=== PATIENT | female | born 1995 | race Caucasian/White ===

== ENCOUNTER 2019-09-20 11:02 | Emergency (ER) | payer OTHER ==
[2019-09-20 11:56] LABS: Absolute Lymphocytes (CBC) 1.6 K/uL (0.7-4.9); Basophils % 0.6 % (0-1.3); Hematocrit 40.9 % (36.0-45.0); Lymphocytes % 25.5 % (15.3-44.8); RBC Red Blood Cell Count 4.88 M/uL (3.86-4.86)
[2019-09-20] MEDS ORDERED: NA CHLORIDE 0.9% 1,000 ML ONE (11:59)
[2019-09-20 12:27] LABS: Potassium 3.8 mmol/L (3.5-5.1)
[2019-09-20 12:45] LABS: Urine Blood 2+ (NEG); Urine Glucose NEGATIVE (NEG); Urine Protein 1+ (NEG)
--- NOTE | 2019-09-20 13:04 | EDPHYS ---
Physician Documentation [facility] Name: Radha Sue Age: 24 yrs Sex: Female : 1995 Arrival Date: 09/20/2019 Time: 11:04 Bed 8 Private MD: ED Physician Duy Hubbard HPI: 09/19 12:10 This 24 yrs old Female presents to ER via Ambulatory with complaints of karen Vaginal Bleeding, + Preg <12wks. 12:10 The patient presents to the emergency department with vaginal bleeding, that is light, karen that is moderate. The estimated gestational age is 6 weeks. course: care: none. Associated signs and symptoms: The patient has no apparent associated signs or symptoms. The patient has not experienced similar symptoms in the past. 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 - Social history:: Smoking status: Patient denies any tobacco usage or history of. - Family history:: not pertinent. ROS: 12:10 Constitutional: Negative for fever, chills, and weight loss, Eyes: Negative for injury, karen pain, redness, and discharge, ENT: Negative for injury, pain, and discharge, Neck: Negative for injury, pain, and swelling, Cardiovascular: Negative for chest pain, palpitations, and edema, Respiratory: Negative for shortness of breath, cough, wheezing, and pleuritic chest pain, Abdomen/GI: Negative for abdominal pain, nausea, vomiting, diarrhea, and constipation, Back: Negative for injury and pain, MS/Extremity: Negative for injury and deformity, Skin: Negative for injury, rash, and discoloration, Neuro: Negative for headache, weakness, numbness, tingling, and seizure, Psych: Negative for depression, anxiety, suicide ideation, homicidal ideation, and hallucinations, Allergy/Immunology: Negative for hives, rash, and allergies, Endocrine: Negative for neck swelling, polydipsia, polyuria, polyphagia, and marked weight changes, Hematologic/Lymphatic: Negative for swollen nodes, abnormal bleeding, and unusual bruising. 12:10 : Positive for vaginal bleeding. Exam: 12:10 Constitutional: This is a well developed, well nourished patient who is awake, alert, karen and in no acute distress. Head/Face: Normocephalic, atraumatic. Eyes: Pupils equal round and reactive to light, extra-ocular motions intact. Lids and lashes normal. Conjunctiva and sclera are non-icteric and not injected. Cornea within normal limits. Periorbital areas with no swelling, redness, or edema. ENT: Nares patent. No nasal discharge, no septal abnormalities noted. Tympanic membranes are normal and external auditory canals are clear. Oropharynx with no redness, swelling, or masses, exudates, or evidence of obstruction, uvula midline. Mucous membranes moist. Neck: Trachea midline, no thyromegaly or masses palpated, and no cervical lymphadenopathy. Supple, full range of motion without nuchal rigidity, or vertebral point tenderness. No Meningismus. Chest/axilla: Normal chest wall appearance and motion. Nontender with no deformity. No lesions are appreciated. Cardiovascular: Regular rate and rhythm with a normal S1 and S2. No gallops, murmurs, or rubs. Normal PMI, no JVD. No pulse deficits. Respiratory: Lungs have equal breath sounds bilaterally, clear to auscultation and percussion. No rales, rhonchi or wheezes noted. No increased work of breathing, no retractions or nasal flaring. Abdomen/GI: Soft, non-tender, with normal bowel sounds. No distension or tympany. No guarding or rebound. No evidence of tenderness throughout. Back: No spinal tenderness. No costovertebral tenderness. Full range of motion. Skin: Warm, dry with normal turgor. Normal color with no rashes, no lesions, and no evidence of cellulitis. MS/ Extremity: Pulses equal, no cyanosis. Neurovascular intact. Full, normal range of motion. Neuro: Awake and alert, GCS 15, oriented to person, place, time, and situation. Cranial nerves II-XII grossly intact. Motor strength 5/5 in all extremities. Sensory grossly intact. Cerebellar exam normal. Normal gait. Psych: Awake, alert, with orientation to person, place and time. Behavior, mood, and affect are within normal limits. Vital Signs: 11:14 BP 113 / 91; Pulse 96; Resp 17; Temp 98.6; Pulse Ox 99% ; Weight 80.74 kg; Height 5 ft. jl7 9 in. (175.26 cm); Pain 7/10; 12:58 BP 139 / 94; Pulse 90; Resp 16; Pulse Ox 99% ; jl7 11:14 Body Mass Index 26.29 (80.74 kg, 175.26 cm) jl7 MDM: 11:11 Patient medically screened. [facility] 12:19 Differential diagnosis: threatened Ab, inevitable Ab, complete Ab. Data reviewed: vital karen signs, nurses notes, lab test result(s), radiologic studies, ultrasound. Data interpreted: teletypesetter monitor: rate is 96 beats/min, Pulse oximetry: on is 99 %. Counseling: I had a detailed discussion with the patient and/or guardian regarding: the historical points, exam findings, and any diagnostic results supporting the discharge/admit diagnosis, lab results, radiology results, the need for outpatient follow up, for definitive care, an OB/Gyne specialist. 13:03 ED course: usg 5 bweek 2 days, no pole, b neg, rhogam pnv and pelvic rest. follow karen up cat hooker, return if worsen. 09/19 11:33 Order name: Quantitative Hcg; Complete Time: 13:01 [facility] 09/19 11:33 Order name: Abo/rh Typing [facility] 09/19 11:33 Order name: Basic Metabolic Panel; Complete Time: 13: [facility] 09/19 11:33 Order name: CBC with Diff; Complete Time: 13: [facility] 09/19 11:33 Order name: Urine Culture [facility] 09/19 12:10 Order name: Urine Dipstick--Ancillary (enter results); Complete Time: 13: 09/19 12:10 Order name: Urine --Ancillary (enter results); Complete Time: 13: 09/19 12:38 Order name: ABO/RH no charge; Complete Time: 13: [facility] 09/19 13:08 Order name: Rh Typing [facility] 09/19 11:33 Order name: IV Saline Lock; Complete Time: 11:41 [facility] 09/19 11:33 Order name: Labs collected and sent; Complete Time: 11:41 [facility] 09/19 11:33 Order name: NPO; Complete Time: :41 [facility] 09/19 11:33 Order name: Urine Dipstick-Ancillary (obtain specimen); Complete Time: 11:40 [facility] 09/19 11:33 Order name: US Transvaginal Ob [facility] 09/19 13:08 Order name: Rhogam EDMS Administered Medications: 11:45 Drug: NS 0.9% 1000 ml Route: IV; Rate: 1 bolus; Site: right antecubital; bp 12:45 Follow up: Response: No adverse reaction; IV Status: Completed infusion; IV Intake: jl7 800ml 13:45 Drug: RhoGAM (Human) 300 mcg Route: IM; Site: right deltoid; jl7 14:02 Follow up: Response: No adverse reaction jl7 Point of Care Testing: Urine : 11:41 hCG Reading: Positive; Control Reading: Positive; jl7 Disposition: 09/20/19 13:03 Discharged to Home. Impression: Threatened . - Condition is Stable. - Discharge Instructions: Threatened Miscarriage, Vaginal Bleeding During , First Trimester, First Trimester of , [id number], First Trimester of , Threatened Miscarriage, Sapy-[id number], Pelvic Rest. - Prescriptions for Vitamin 27- 0.8 mg Oral Tablet - take 1 tablet by ORAL route once daily; 30 tablet. - Medication Reconciliation Form, Thank You Letter, Antibiotic Education, Prescription Opioid Use, Work release form form. - Follow up: Private Physician; When: 2 - 3 days; Reason: Recheck today's complaints, Continuance of care, Re-evaluation by your physician. Follow up: Will Rodriguez MD; When: 2 - 3 days; Reason: Recheck today's complaints, Re-evaluation by your physician. - Problem is new. - Symptoms have improved. Signatures: Dispatcher [employer] EDDuy Walker MD MD cha Leal, Jahala, RN RN jl7 Daniel Nunes RN RN bp Corrections: (The following items were deleted from the chart) 13:08 13:03 RHOGAM+[id number].BRZ ordered. EDMS EDMS 13:08 13:03 Rh Typing ordered. EDMS EDMS 13:08 13:03 Antibody Screen ordered. EDMS EDAL 13:08 13:03 Fetalscreen ordered. [facility] 13:08 13:03 Cord Rh type ordered. [facility] 14:04 13:03 09/20/2019 13:03 Discharged to Home. Impression: Threatened . Condition jl7 is Stable. Forms are Medication Reconciliation Form, Thank You Letter, Antibiotic Education, Prescription Opioid Use. Follow up: Private Physician; When: 2 - 3 days; Reason: Recheck today's complaints, Continuance of care, Re-evaluation by your physician. Follow up: Will Rodriguez; When: 2 - 3 days; Reason: Recheck today's complaints, Re-evaluation by your physician. Problem is new. Symptoms have improved. karen
--- NOTE | 2019-09-20 13:04 | ER ---
Nurse's Notes [facility] Name: Radha Sue Age: 24 yrs Sex: Female : 1995 Arrival Date: 09/20/2019 Time: 11:04 Bed 8 Private MD: Diagnosis: Threatened Presentation: 09/19 11:14 Chief complaint: Patient states: Bright red bleeding this morning, RLQ pain, denies jl7 N/V/D, denies urinary symptoms. Coronavirus screen: Proceed with normal triage. Patient denies a cough. Patient denies shortness of breath or difficulty breathing. Patient denies measured and/or subjective temperature greater than 100.4F prior to today's visit. Patient denies travel on a cruise ship or to a country the [facility] currently lists as an affected area. Patient denies contact with known and/or suspected case of COVID-19. Ebola Screen: No symptoms or risks identified at this time. Initial Sepsis Screen: Does the patient meet any 2 criteria? No. Patient's initial sepsis screen is negative. Does the patient have a suspected source of infection? No. Patient's initial sepsis screen is negative. Risk Assessment: Do you want to hurt yourself or someone else? Patient reports no desire to harm self or others. Onset of symptoms was September 20, 2019. Care prior to arrival: None. 11:14 Method Of Arrival: Ambulatory jl7 11:14 Acuity: TAVIA 3 jl7 Triage Assessment: 11:17 General: Appears in no apparent distress. uncomfortable, Behavior is calm, cooperative, jl7 appropriate for age. Pain: Complains of pain in right lower quadrant Pain does not radiate. Pain currently is 0 out of 10 on a pain scale. at worst was 7 out of 10 on a pain scale. Quality of pain is described as sharp, Pain began suddenly, Is intermittent. Neuro: Level of Consciousness is awake, alert, obeys commands, Oriented to person, place, time, situation. Cardiovascular: Patient's skin is warm and dry. Respiratory: Airway is patent Respiratory effort is even, unlabored, Respiratory pattern is regular, symmetrical. GI: Patient currently denies diarrhea, nausea, vomiting. : Reports vaginal bleeding that is bright red, Denies burning with urination. Derm: Skin is pink, warm \T\ dry. 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 - Social history:: Smoking status: Patient denies any tobacco usage or history of. - Family history:: not pertinent. Screenin:19 Abuse screen: Denies threats or abuse. Denies injuries from another. Nutritional jl7 screening: No deficits noted. Tuberculosis screening: No symptoms or risk factors identified. Fall Risk IV access (20 points). Total Hooks Fall Scale indicates No Risk (0-24 pts). Assessment: 11:19 Obstetrical Assessment: Patient reports Abdominal pain. General: See triage assessment. jl7 12:00 Reassessment: Patient appears in no apparent distress at this time. No changes from 7 previously documented assessment. Patient and/or family updated on plan of care and expected duration. Pain level reassessed. Patient is alert, oriented x 3, equal unlabored respirations, skin warm/dry/pink. 12:58 Reassessment: Patient appears in no apparent distress at this time. No changes from 7 previously documented assessment. Patient and/or family updated on plan of care and expected duration. Pain level reassessed. Patient is alert, oriented x 3, equal unlabored respirations, skin warm/dry/pink. 13:09 Reassessment: Pt will be discharged after medication administration and shot time. jl7 Vital Signs: 11:14 BP 113 / 91; Pulse 96; Resp 17; Temp 98.6; Pulse Ox 99% ; Weight 80.74 kg; Height 5 ft. jl7 9 in. (175.26 cm); Pain 7/10; 12:58 BP 139 / 94; Pulse 90; Resp 16; Pulse Ox 99% ; jl7 11:14 Body Mass Index 26.29 (80.74 kg, 175.26 cm) 7 ED Course: 11:04 Patient arrived in ED. ag5 11:08 Daniel Nunes, RN is Primary Nurse. bp 11:11 Duy Hubbard MD is Attending Physician. karen 11:14 Primary Nurse role handed off by Daniel Nunes RN jl7 11:14 Erika Simons, RN is Primary Nurse. jl7 11:16 Triage completed. jl7 11:17 Arm band placed on right wrist. jl7 11:19 Patient has correct armband on for positive identification. Placed in gown. Bed in low jl7 position. Call light in reach. Side rails up X 1. Pulse ox on. NIBP on. 11:42 Warm blanket given. 5 11:42 Urine collected: clean catch specimen, cloudy. 5 11:45 Inserted saline lock: 20 gauge in right antecubital area, using aseptic technique. bp Blood collected. 12:17 Repeat lab(s) drawn. by mt, sent to lab. 5 12:56 US Transvaginal Ob In Process Unspecified. [facility] 13:01 Ultrasound completed. Patient tolerated well. Notified ED Physician timur. sg3 13:02 Will Rodriguez MD is Referral Physician. [facility] 14:03 No provider procedures requiring assistance completed. IV discontinued, intact, jl7 bleeding controlled, No redness/swelling at site. Pressure dressing applied. Administered Medications: 11:45 Drug: NS 0.9% 1000 ml Route: IV; Rate: 1 bolus; Site: right antecubital; bp 12:45 Follow up: Response: No adverse reaction; IV Status: Completed infusion; IV Intake: jl7 800ml 13:45 Drug: RhoGAM (Human) 300 mcg Route: IM; Site: right deltoid; jl7 14:02 Follow up: Response: No adverse reaction jl7 Point of Care Testing: Urine : 11:41 hCG Reading: Positive; Control Reading: Positive; jl7 Intake: 12:45 IV: 800ml; Total: 800ml. jl7 Outcome: 13:03 Discharge ordered by . karen 14:03 Discharged to home ambulatory. jl7 14:03 Condition: stable 14:03 Discharge instructions given to patient, Instructed on discharge instructions, follow up and referral plans. medication usage, Demonstrated understanding of instructions, follow-up care, medications, Prescriptions given X 1. 14:04 Patient left the ED. jl7 Signatures: Dispatcher [employer] EDMS Duy Hubbard MD MD karen Giancarlo, Michelle 5 Erika Simons, RN RN jl7 Daniel Nunes, REJI RN bp Aleyda Sanchez 3 Blayne Guerra 5
--- NOTE | 2019-09-20 13:06 | RAD REPORT ---
EXAM DESCRIPTION: US - Transvaginal OB - 09/20/2019 12:58 pm CLINICAL HISTORY: ABD CRAMPING, COMPARISON: No comparisons FINDINGS: Normal-sized uterus is present. Normal shaped gestational sac is present. Small yolk sac i s identified. No pole is evident at this time. No hematoma or mass within the endometrial cavit y. Gestational sac measurements correspond to a 5 week 2 day age. Both ovaries are identified. Small cysts are present. No dominant ovarian or adnexal finding. No bloo d or fluid in the cul de sac. IMPRESSION: Small 5 week 2 day sized gestational sac with yolk sac. No pole is currently evide nt. No adnexal abnormalities.
[2019-09-20 14:16] VITALS: TEMP 98.6; O2SAT 99
[2019-09-20 14:17] VITALS: BP 139/94
== END 2019-09-20 14:04 | disposition home or self-care (01) ==
LOC: ER 11:02
DX: O20.0 Threatened abortion (principal); O16.1 Unspecified maternal hypertension, first trimester; Z3A.01 Less than 8 weeks gestation of pregnancy; Z88.5 Allergy status to narcotic agent
CPT/HCPCS: 87088; 85025; 87086; 80048; 36415; 86900; 81025; 86901 ×2; 84702; 81003; 76817; 96360; 96372; 99284; J2790; J7030

== ENCOUNTER 2020-01-29 07:38 | Emergency (ER) | payer OTHER ==
--- OUTSIDE RECORDS SUMMARY | 2020-01-29 07:43 | XMS REPORT | Continuity of Care Document ---
:1995 Author Organization [facility] t Address [address] [place] [address] Care Team Providers Name Role Phone Radiology Attending Clinician Unavailable Pob, Lab Main Attending Clinician Unavailable Problems This patient has no known problems. Allergies, Adverse Reactions, Alerts This patient has no known allergies or adverse reactions. Medications This patient has no known medications. Procedures This patient has no known procedures. Encounters Start End Encounter Admission Attending Care Care Encounter Source Date/Time Date/Time Type Type Clinicians Facility Department ID 2019-09-04 2019-09-04 [facility] Radiology [facility] [id number] 08:58:00 23:59:00 Encounter [place] [id number] [place] [id number] [place] [id number] 2019-09-04 2019-09-04 Sewing Department Supervisor Sunil Deluca [facility] [id number] 09:02:04 09:17:04 Visit Lab Main [place] [id number] [place] [id number] [phone] [address] Results This patient has no known results.
[2020-01-29 08:25] LABS: Absolute Lymphocytes (CBC) 1.4 K/uL (0.7-4.9); Basophils % 0.3 % (0-1.3); Hematocrit 38.8 % (36.0-45.0); Lymphocytes % 19.4 % (15.3-44.8); MPV 7.8 fL (7.6-11.3)
[2020-01-29] MEDS ORDERED: FAMOTIDINE 20 MG/2 ML VIAL IV ONE (08:38)
[2020-01-29] MEDS ORDERED: NA CHLORIDE 0.9% 1,000 ML ONE (08:38)
[2020-01-29 08:58] LABS: BUN Blood Urea Nitrogen 5 mg/dL (7-18); Bicarbonate 27 mmol/L (21-32); Glucose Level 67 mg/dL (74-106); HCG, Quantitative 12096 mIU/mL (1-3); Potassium 3.9 mmol/L (3.5-5.1); Sodium Level 138 mmol/L (136-145)
[2020-01-29 09:14] LABS: Urine Blood NEGATIVE (NEG); Urine Glucose NEGATIVE (NEG); Urine Protein NEGATIVE (NEG); Urine pH 7.5 (5.0-7.0)
--- NOTE | 2020-01-29 09:55 | RAD REPORT ---
EXAM DESCRIPTION: US - Transvaginal OB - 01/29/2020 9:38 am CLINICAL HISTORY: Abd pain;Nausea/Vomiting COMPARISON: Transvaginal OB dated 09/20/2019 FINDINGS: A single gestational sac is seen within the uterus. The shape of the sac is within normal limits for gestational age. Within the sac is a single pole with crown-rump length of 11 mm, co rrelating to estimated gestational age of 7 weeks 1 day. Estimated date of delivery is 09/15/2020. Heart rate is 140 BPM. The placenta is not yet developed due to early gestational age. The maternal adnexa and ovaries are within normal limits. Normal Doppler blood flow was demonstrated to both ovaries. IMPRESSION: Single live early intrauterine gestation with estimated gestational age of 7 weeks 1 day , SYEDA 09/15/2020. No unusual or unexpected finding.
--- NOTE | 2020-01-29 10:21 | EDPHYS ---
Physician Documentation [facility] Name: Radha Sue Age: 24 yrs Sex: Female : 1995 Arrival Date: 01/29/2020 Time: 07:42 Bed 20 Private MD: ED Physician Lance Guido HPI: 01/28 16:29 This 24 yrs old Female presents to ER via Ambulatory with complaints of kdr Abdominal Pain, Nausea/Vomiting, +7 WKS PREG.. 17:59 The patient presents to the emergency department with nausea, that is mild, vomiting, kdr that is intermittent. Onset: The symptoms/episode began/occurred acutely, gradually, 3 day(s) ago. Possible causes: . The symptoms are aggravated by food , The symptoms are alleviated by. Associated signs and symptoms: The patient has no apparent associated signs or symptoms. Severity of symptoms: At their worst the symptoms were mild moderate just prior to arrival, in the emergency department the symptoms are unchanged. The patient has experienced similar episodes in the past, several times, With prior pregnancies . The patient has not recently seen a physician. Historical: - Allergies: 08:01 Demerol; ph - PMHx: 08:01 Hypertension; mitral valve prolapse and regurgitation; ph - PSHx: 08:01 Appendectomy; ph - Immunization history:: Adult Immunizations unknown. - Social history:: Smoking status: Patient denies any tobacco usage or history of. ROS: 17:59 Constitutional: Negative for fever, chills, and weight loss, Eyes: Negative for injury, kdr pain, redness, and discharge, ENT: Negative for injury, pain, and discharge, Neck: Negative for injury, pain, and swelling, Cardiovascular: Negative for chest pain, palpitations, and edema, Respiratory: Negative for shortness of breath, cough, wheezing, and pleuritic chest pain, Back: Negative for injury and pain, : Negative for injury, bleeding, discharge, and swelling, MS/Extremity: Negative for injury and deformity, Skin: Negative for injury, rash, and discoloration, Neuro: Negative for headache, weakness, numbness, tingling, and seizure activity. Psych: Negative for depression, anxiety, suicide ideation, homicidal ideation, and hallucinations, Allergy/Immunology: Negative for hives, rash, and allergies, Endocrine: Negative for neck swelling, polydipsia, polyuria, polyphagia, and marked weight changes, Hematologic/Lymphatic: Negative for swollen nodes, abnormal bleeding, and unusual bruising. 17:59 Abdomen/GI: Positive for nausea and vomiting, Negative for abdominal pain, diarrhea, constipation, abdominal cramps, abdominal distension, anorexia, dysphagia, hematemesis, black/tarry stool, rectal pain, rectal bleeding, bowel incontinence. Exam: 17:59 Constitutional: This is a well developed, well nourished patient who is awake, alert, kdr and in no acute distress. Head/Face: Normocephalic, atraumatic. Eyes: Pupils equal round and reactive to light, extra-ocular motions intact. Lids and lashes normal. Conjunctiva and sclera are non-icteric and not injected. Cornea within normal limits. Periorbital areas with no swelling, redness, or edema. Neck: Trachea midline, no thyromegaly or masses palpated, and no cervical lymphadenopathy. Supple, full range of motion without nuchal rigidity, or vertebral point tenderness. No Meningismus. Chest/axilla: Normal chest wall appearance and motion. Nontender with no deformity. No lesions are appreciated. Cardiovascular: Regular rate and rhythm with a normal S1 and S2. No gallops, murmurs, or rubs. Normal PMI, no JVD. No pulse deficits. Respiratory: Lungs have equal breath sounds bilaterally, clear to auscultation and percussion. No rales, rhonchi or wheezes noted. No increased work of breathing, no retractions or nasal flaring. Abdomen/GI: Soft, non-tender, with normal bowel sounds. No distension or tympany. No guarding or rebound. No evidence of tenderness throughout. Back: No spinal tenderness. No costovertebral tenderness. Full range of motion. Skin: Warm, dry with normal turgor. Normal color with no rashes, no lesions, and no evidence of cellulitis. MS/ Extremity: Pulses equal, no cyanosis. Neurovascular intact. Full, normal range of motion. Neuro: Awake and alert, GCS 15, oriented to person, place, time, and situation. Cranial nerves II-XII grossly intact. Motor strength 5/5 in all extremities. Sensory grossly intact. Cerebellar exam normal. Normal gait. Psych: Awake, alert, with orientation to person, place and time. Behavior, mood, and affect are within normal limits. Vital Signs: 07:52 BP 129 / 101; Pulse 108; Resp 18; Temp 98.6; Pulse Ox 100% ; Weight 79.38 kg; Height 5 sv ft. 9 in. (175.26 cm); Pain 2/10; 08:49 BP 117 / 78; Pulse 66; Resp 16; Temp 98.4(O); Pulse Ox 100% on R/A; mh5 10:05 BP 125 / 80; Pulse 65; Resp 16; Temp 98.2(O); Pulse Ox 100% on R/A; mh5 10:31 Temp 97.9(O); ph 07:52 Body Mass Index 25.84 (79.38 kg, 175.26 cm) sv MDM: 10:20 Patient medically screened. kdr 17:59 Data reviewed: vital signs, nurses notes, lab test result(s), radiologic studies. kdr Counseling: I had a detailed discussion with the patient and/or guardian regarding: the historical points, exam findings, and any diagnostic results supporting the discharge/admit diagnosis, lab results, radiology results, the need for outpatient follow up. 01/28 07:46 Order name: Quantitative Hcg; Complete Time: 09:58 kdr 01/28 07:46 Order name: Abo/rh Typing kdr 01/28 07:46 Order name: Basic Metabolic Panel; Complete Time: 09:58 kdr 01/28 07:46 Order name: CBC with Diff; Complete Time: 09:58 kdr 01/28 08:29 Order name: Urine Dipstick--Ancillary (enter results); Complete Time: 09:58 eb 01/28 08:29 Order name: Urine --Ancillary (enter results); Complete Time: 09:58 eb 01/28 07:46 Order name: IV Saline Lock; Complete Time: 08:23 kdr 01/28 07:46 Order name: Labs collected and sent; Complete Time: 08:23 kdr 01/28 07:46 Order name: NPO; Complete Time: 08: kdr 01/28 07:46 Order name: Urine Dipstick-Ancillary (obtain specimen); Complete Time: 08:23 kdr 01/28 08:07 Order name: US Transvaginal Ob; Complete Time: 09:58 kdr 01/28 09:49 Order name: PO challenge; Complete Time: 10:05 kdr Administered Medications: 08:29 Drug: NS 0.9% 1000 ml Route: IV; Rate: 1 bolus; Site: left antecubital; ph 10:30 Follow up: Response: No adverse reaction; IV Status: Completed infusion; IV Intake: ph 500ml 08:29 Drug: Pepcid 20 mg Route: IVP; Site: left antecubital; ph 10:05 Follow up: Response: No adverse reaction ph Disposition: 01/29/20 10:20 Discharged to Home. Impression: Mild hyperemesis gravidarum. - Condition is Fair. - Discharge Instructions: Hyperemesis Gravidarum, Eating Plan for Hyperemesis Gravidarum. - Prescriptions for Zofran 4 mg Oral Tablet - take 1 tablet by ORAL route every 4-6 hours As needed; 12 tablet. - Medication Reconciliation Form, Thank You Letter, Work release form form. - Follow up: Private Physician; When: 2 - 3 days; Reason: If symptoms return, Further diagnostic work-up, Recheck today's complaints, Continuance of care, Re-evaluation by your physician. - Problem is new. - Symptoms have improved. Signatures: Dispatcher [employer] EDMS Lance Guido MD MD kdr Raina Kirby RN RN ph Corrections: (The following items were deleted from the chart) 10:31 10:20 01/29/2020 10:20 Discharged to Home. Impression: Mild hyperemesis gravidarum. ph Condition is Fair. Forms are Medication Reconciliation Form, Thank You Letter, Antibiotic Education, Prescription Opioid Use. Follow up: Private Physician; When: 2 - 3 days; Reason: If symptoms return, Further diagnostic work-up, Recheck today's complaints, Continuance of care, Re-evaluation by your physician. Problem is new. Symptoms have improved. kdr
--- NOTE | 2020-01-29 10:21 | ER ---
Nurse's Notes [facility] Name: Radha Sue Age: 24 yrs Sex: Female : 1995 Arrival Date: 01/29/2020 Time: 07:42 Bed 20 Private MD: Diagnosis: Mild hyperemesis gravidarum Presentation: 01/28 07:52 Chief complaint: Patient states: RLQ/suprapubic pain, generalized weakness, n/v, feels sv like she's not emptying her bladder completely x 2 days. Coronavirus screen: Client denies travel out of the [place] in the last 14 days. fatigue, nausea, vomiting. Client presents with at least one sign or symptom that may indicate coronavirus-19. Standard/surgical mask placed on the client. Provider contacted for isolation considerations. Ebola Screen: No symptoms or risks identified at this time. Initial Sepsis Screen: Does the patient meet any 2 criteria? HR > 90 bpm. No. Patient's initial sepsis screen is negative. Does the patient have a suspected source of infection? No. Patient's initial sepsis screen is negative. Risk Assessment: Do you want to hurt yourself or someone else? Patient reports no desire to harm self or others. Onset of symptoms was January 27, 2020. 07:52 Method Of Arrival: Ambulatory sv 07:52 Acuity: TAVIA 2 sv Historical: - Allergies: 08:01 Demerol; ph - PMHx: 08:01 Hypertension; mitral valve prolapse and regurgitation; ph - PSHx: 08:01 Appendectomy; ph - Immunization history:: Adult Immunizations unknown. - Social history:: Smoking status: Patient denies any tobacco usage or history of. Screenin:53 Abuse screen: Denies threats or abuse. Denies injuries from another. Nutritional ph screening: No deficits noted. Tuberculosis screening: No symptoms or risk factors identified. Fall Risk None identified. Assessment: 07:55 Reassessment: Informed Dr Guido of reason for visit, stated does not need droplet sv precautions. 08:00 General: Appears in no apparent distress. uncomfortable, well groomed, Behavior is ph calm, cooperative, appropriate for age, Denies fever, feeling ill. Pain: Complains of pain in posterior aspect of left lateral abdomen and anterior aspect of left lateral abdomen. Neuro: Level of Consciousness is awake, alert, obeys commands, Oriented to person, place, time, situation. Cardiovascular: Capillary refill < 3 seconds in bilateral fingers Patient's skin is warm and dry. Respiratory: Airway is patent Respiratory effort is even, unlabored, Respiratory pattern is regular, symmetrical. GI: Abdomen is round non-distended, Abd is soft and non tender X 4 quads. Reports nausea, vomiting. : Reports urinary frequency, Denies burning with urination, vaginal bleeding. Derm: Skin is intact, is healthy with good turgor, Skin is pink, warm \T\ dry. 09:13 Reassessment: Patient appears in no apparent distress at this time. Patient and/or ph family updated on plan of care and expected duration. Pain level reassessed. Patient is alert, oriented x 3, equal unlabored respirations, skin warm/dry/pink. Patient states symptoms have improved. Vital Signs: 07:52 BP 129 / 101; Pulse 108; Resp 18; Temp 98.6; Pulse Ox 100% ; Weight 79.38 kg; Height 5 sv ft. 9 in. (175.26 cm); Pain 2/10; 08:49 BP 117 / 78; Pulse 66; Resp 16; Temp 98.4(O); Pulse Ox 100% on R/A; mh5 10:05 BP 125 / 80; Pulse 65; Resp 16; Temp 98.2(O); Pulse Ox 100% on R/A; mh5 10:31 Temp 97.9(O); ph 07:52 Body Mass Index 25.84 (79.38 kg, 175.26 cm) sv ED Course: 07:42 Patient arrived in ED. bp1 07:46 Lance Guido MD is Attending Physician. kdr 07:48 Raina Kirby, REJI is Primary Nurse. ph 07:52 Arm band placed on. sv 07:53 Patient has correct armband on for positive identification. Bed in low position. Call ph light in reach. Side rails up X 1. Pulse ox on. NIBP on. Door closed. Noise minimized. Warm blanket given. 07:55 Triage completed. sv 08:10 Radiology exam delayed due to lab results not completed at this time. (HCG) aa4 test not completed at this time. 08:10 Missed attempt(s): 22 gauge in right antecubital area. Bleeding controlled, band aid ph applied, catheter tip intact. 08:15 Inserted saline lock: 22 gauge in left antecubital area, using aseptic technique. Blood ph collected. 09:38 US Transvaginal Ob In Process Unspecified. EDMS 09:43 Patient moved back from ultrasound. sv 10:31 No provider procedures requiring assistance completed. IV discontinued, intact, ph bleeding controlled, No redness/swelling at site. Pressure dressing applied. Administered Medications: 08:29 Drug: NS 0.9% 1000 ml Route: IV; Rate: 1 bolus; Site: left antecubital; ph 10:30 Follow up: Response: No adverse reaction; IV Status: Completed infusion; IV Intake: ph 500ml 08:29 Drug: Pepcid 20 mg Route: IVP; Site: left antecubital; ph 10:05 Follow up: Response: No adverse reaction ph Intake: 10:30 IV: 500ml; Total: 500ml. ph Outcome: 10:20 Discharge ordered by MD. kdr 10:31 Discharged to home ambulatory. ph 10:31 Condition: good 10:31 Discharge instructions given to patient, Instructed on discharge instructions, follow up and referral plans. medication usage, Demonstrated understanding of instructions, follow-up care, medications, Prescriptions given X 1. 10:31 Patient left the ED. ph Signatures: Dispatcher [employer] EDMS Kelli Velez RN RN sv Rittger, Kevin, MD MD kdr Frazier, Amanda aa4 Hall, Patricia, RN RN ph Martinez, Maria [facility] Hazel Fuentes [facility]
[2020-01-29 10:38] VITALS: O2SAT 100
[2020-01-29 10:40] VITALS: BP 125/80
[2020-01-29 10:41] VITALS: TEMP 97.9
== END 2020-01-29 10:31 | disposition home or self-care (01) ==
LOC: ER 07:38
DX: O21.0 Mild hyperemesis gravidarum (principal); Z3A.01 Less than 8 weeks gestation of pregnancy; Z88.5 Allergy status to narcotic agent
CPT/HCPCS: 96361; 85025; 80048; 36415; 86900; 81025; 86901; 84702; 81003; 76817; 96374; 99284; J7030

== ENCOUNTER 2020-03-19 20:51 | Emergency (ER) | payer OTHER ==
--- OUTSIDE RECORDS SUMMARY | 2020-03-19 20:54 | XMS REPORT | Summary of Care ---
:[address] [facility] Address [address] [place] [id number] Care Team Providers Name Role Phone Chapo Barney MD Primary Care Provider Reason for Visit Reason Comments Medical Records MR received from cardiologis t Dr. Villegas Encounter Details Date Type Department Care Team Description 02/15/2020 Case Management [facility] Women's Zandra Majano M edical Records ([facility] PA-C received from [address] [place] [address] Burgos, [address] [place]) [facility] [address] [id number] [place], [place] [phone] Allergies Active Allergy Reactions Severity Noted Date Comments Meperidine Hcl Rash 12/10/2015 documented as of this encounter (statuses as of 02/15/2020) Medications Medication Sig Dispensed Refills Start Date End Date Status labetalol (NORMODYNE) Take 200 mg by 0 Active 100 mg tablet mouth every 12 (twelve) hours. ondansetron 4 mg TAKE 1 TABLET BY 0 02/09/2020 Active tablet MOUTH EVERY 4 TO 6 HOURS NEEDED FOR NAUSEA vit Take by mouth. 0 A ctive calc,iron,folic ( VITAMIN ORAL) doxylamine-pyridoxine, Take 1 tablet by 120 tablet 3 0 Active vit B6, (DICLEGIS) mouth 10-10 mg per SEE-INSTRUCTIONS. tabletIndications: Nausea and vomiting during prior to 22 weeks gestation documented as of this encounter (statuses as of 02/15/2020) Active Problems Problem Noted Date High-risk in first trimester 02/11/2020 History of vacuum extraction assisted delivery 020 Nausea and vomiting during prior to 22 weeks gestation 06/13/2015 Mitral valve prolapse 06/13/2015 Essential hypertension 06/13/2015 Estimated Date of Delivery Comments Yes 09/13/2020 Based on last menstr ual period of 12/08/2019 (Within Days) documented as of this encounter (statuses as of 02/15/2020) Social History Tobacco Use Types Packs/Day Years Used Date Current Every Day Smoker Cigarettes Smokeless Tobacco: Never Used Comments: 3 ciggs a day Alcohol Use Drinks/Week oz/Week Comments Not Currently Estimated Date of Delivery Comments Yes 09/13/2020 Based on last menstr ual period of 12/08/2019 (Within Days) Sex Assigned at Date Recorded Not on file COVID-19 Exposure Response Date Recorded In the last month, have you been in contact with No / Unsure 02/11/2020 1:54 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 documented as of this encounter Last Filed Vital Signs Not on filedocumented in this encounter Progress Notes Zandra Majano PA-C - 02/15/2020 4:06 PM CSTStudy done by cardiology 09/12/15 Patient was evaluated due to CP, palpitations, dyspnea, pulm HTN. A complete 2D transthoracic echocardiogram performed, compared to prior study, no significant change. EKG done normal sinus rhythm 06/09/15 A complete 2D transthoracic echocardiogram performed, compared to prior study, no significant changedone in 2012. A complete 2D transthoracic echocardiogram performed in 2010. Holter report done on 06/2010 -basic rhythm is sinus bradycardia, mild ectopy, no runs, no pauses. 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 Plan of Treatment Health Maintenance Due Date Last Done Comments VARICELLA VACCINES (1 of 2 - 2-dose childhood series) 02/19/1996 PNEUMOCOCCAL 0-64 YEARS COMBINED SERIES (1 of 1 - 2001 PPSV23) HPV VACCINES (1 - 2-dose series) 2006 Depression Screening 2007 DTaP,Tdap,and Td Vaccines (1 - Tdap) 2014 PAP SMEAR 02/19/2016 INFLUENZA VACCINE (#1) 2019 CHLAMYDIA SCREENING 02/10/2021 02/11/2020 documented as of this encounter Results Not on filedocumented in this encounter Insurance Payer Benefit Plan / Group Subscriber ID Effective Dates Phone Address Type [employer] ALLIED BENEFIT [id number] 2016-Present PPO documented as of this encounter
--- OUTSIDE RECORDS SUMMARY | 2020-03-19 20:54 | XMS REPORT | Summary of Care ---
:1995 Author Organization [facility] - [facility] Address [address] [place] [id number] Care Team Providers Name Role Phone Chapo Barney MD Primary Care Provider Reason for Referral (Routine) Status Reason Specialty Diagnoses / Referred By Referred To Procedures Contact Contact New Request Ophthalmology Diagnoses Essential hypertension Morena Bryant, Procedures CONSULT/REFERRAL OPHTHALMOLOGY [address] [place] [address] [address] [place] [address] Reason for Visit Reason Comments Initial Visit Encounter Details Date Type Department Care Team Description 02/11/2020 Initial [facility] Women's Morena Bryant am, MD High-risk in first trimester ( Primary Dx); Visit Healthcare- [address] [place] [address] Missed men ses; Paulo YI examination or test, positive result; [address] [place] [address] [address]; [address], [address] [place], [place] 9 weeks gestation of pregnan cy; [place] [address] Nausea and vomiting during reese or to 22 weeks gestation; [id number] History of vacuum extraction assisted de livery; [phone] Smoker (Fax) Allergies Active Allergy Reactions Severity Noted Date Comments Meperidine Hcl Rash 12/10/2015 documented as of this encounter (statuses as of 02/15/2020) Medications Medication Sig Dispensed Refills Start Date End Date Status labetalol Take 200 mg 0 Active (NORMODYNE) 100 by mouth mg tablet every 12 (twelve) hours. ondansetron 4 mg TAKE 1 0 02/09/2020 Ac tive tablet TABLET BY MOUTH EVERY 4 TO 6 HOURS NEEDED FOR NAUSEA vit Take by 0 Active calc,iron,folic mouth. ( VITAMIN ORAL) doxylamine-pyrido Take 1 120 tablet 3 02/11/2020 Active xine, vit B6, tablet by (DICLEGIS) 10-10 mouth mg per SEE-INSTRUCT tabletIndications IONS. : Nausea and vomiting during prior to 22 weeks gestation sulfamethoxazole- Take 1 20 tablet 0 05/25/2016 D iscontinued trimethoprim tablet by 0 (Patien t 800-160 mg per mouth 2 Repor alexey) tablet (two) times daily. ibuprofen 600 mg Take 1 30 tablet 0 12/19/2016 Di scontinued tablet tablet by 0 (Patient mouth every Reported ) 6 (six) hours as needed for Pain (scale 4-6). documented as of this encounter (statuses as of 02/15/2020) Active Problems Problem Noted Date Smoker 02/15/2020 High-risk in first trimester 02/11/2020 History of [...] Day Smoker Cigarettes Smokeless Tobacco: Never Used Tobacco Cessation: Ready to Quit: Yes Comments: 3 ciggs a day Alcohol Use Drinks/Week oz/Week Comments Not Currently Estimated Date of Delivery Comments Yes 09/13/2020 Based on last menstr ual period of 12/08/2019 (Within Days) Sex Assigned at Date Recorded Not on file COVID-19 Exposure Response Date Recorded In the last month, have you been in contact with No / Unsure 02/11/2020 1:54 PM FLOOR REFINISHER someone who 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 documented as of this encounter Last Filed Vital Signs Vital Sign Reading Time Taken Comments Blood Pressure 136/91 02/11/2020 2:52 PM FLOOR REFINISHER Pulse 94 02/11/2020 2:32 PM FLOOR REFINISHER Temperature 36.8 C (98.2 F) 02/11/2020 2:32 PM FLOOR REFINISHER Respiratory Rate 18 02/11/2020 2:32 PM FLOOR REFINISHER Oxygen Saturation - - Inhaled Oxygen Concentration - - Weight 79.8 kg (176 lb) 02/11/2020 2:32 PM FLOOR REFINISHER Height 172.7 cm (5' 8") 02/11/2020 2:32 PM FLOOR REFINISHER Body Mass Index 26.76 02/11/2020 2:32 PM FLOOR REFINISHER documented in this encounter Progress Notes Morena Bryant MD - 02/11/2020 2:00 PM CST Chief complaint: Chief Complaint Patient presents with Initial Visit HPI Radha Sue is a 24 year old female @ 9w2d by Patient's last menstrual period was 12/08/2019 (within days).Had 01/29/2020 USG at [facility] was told she was 7 1/7 weeks and subchorionic hemorrhage was noted. denies vaginal bleeding. denies cramping. Taking PNV Histories OB History Para Term AB Living 5 2 2 0 2 2 SAB TAB Ectopic Multiple Live Births 2 0 0 0 2 # Outcome Date GA Lbr Mirza/2nd Weight Sex Delivery Anes PTL Lv 5 Current 4 SAB 09/2019 3 SAB 04/2019 2 Term 01/06/16 7 lb 5 oz (3.317 kg) M NORMAL SPONT KATHERINE 1 Term 05/08/11 7 lb 3 oz (3.26 kg) M Vag-Vacuum KATHERINE Complications: Hypertension Past Medical History: Diagnosis Date Essential (primary) hypertension Mitral valve prolapse Family History Problem Relation Age of Onset Kidney Cancer Mother Kidney disease Mother Leukemia Mother Heart Maternal Grandmother Mitral valve prolapse Cancer Maternal Grandfather throat cancer Heart Maternal Grandfather pacemaker Breast Cancer Paternal Grandmother No family status information on file. Past Surgical History: Procedure Laterality Date APPENDECTOMY OTHER ankle surgery Social History Socioeconomic History Marital status: Spouse name: Not on file Number of children: Not on file Years of education: Not on file Highest education level: Not on file Occupational History Not on file Social Needs Financial resource strain: Not on file Food insecurity Worry: Not on file Inability: Not on file Transportation needs Medical: Not on file Non-medical: Not on file Tobacco Use Smoking status: Current Every Day Smoker Types: Cigarettes Smokeless tobacco: Never Used Tobacco comment: 3 ciggs a day Substance and Sexual Activity Alcohol use: Not Currently Drug use: Never Sexual activity: Yes Partners: Male Lifestyle Physical activity Days per week: Not on file Minutes per session: Not on file Stress: Not on file Relationships Social connections Talks on phone: Not on file Gets together: Not on file Attends lutheran service: Not on file Active member of club or organization: Not on file Attends meetings of clubs or organizations: Not on file Relationship status: Not on file Intimate partner violence Fear of current or ex partner: Not on file Emotionally abused: Not on file Physically abused: Not on file Forced sexual activity: Not on file Other Topics Concern Not on file Social History Narrative Denies physical and sexual abuse. Lives in apt with and 2 kids 1 dog Social History Substance and Sexual Activity Sexual Activity Yes Partners: Male Genetic Screen Autism / Mental Retardation: (!) Yes(Pts son) Was person tested for Fragile X?: No Laila Disease: No Congenital Heart Defect: (!) Yes(Mitral valve prolapse- pt, mother, and grandmother) Cystic Fibrosis: No Down Syndrome: No Familial Dysautonomia: No Hemophilia or other Blood Disorders: No Maria E Chorea: No Maternal Metabolic Disorder--specify (eg. Type 1 Diabetes, PKU): No Muscular Dystrophy: No Neural Tube Defect: No Recurrent Loss or a Stillbirth: No Sickle Cell Disease or Trait: No Bowen Sachs: No Teratological Substances (specify type & strength/dose) since LMP: No Thalassemia: No Other Inherited Genetic or Chromosomal Disorder (specify): No No Significant History of Genetic Disorders: No Significant History of Genetic Disorders Labs No new labs Radiology No new radiology. Allergies Radha is allergic to demerol [meperidine hcl]. Medications Radha has a current medication list which includes the following prescription(s): doxylamine-pyridoxine (vit b6), ondansetron, vit calc,iron,folic, and labetalol. Review of Systems Constitutional: Negative for chills, fatigue and fever. HENT: Negative for congestion, rhinorrhea, sneezing and sore throat. Eyes: Negative for photophobia and visual disturbance. Respiratory: Negative for cough, chest tightness, shortness of breath and wheezing. Breasts: Negative for discharge, mass, pain and unequal size. Cardiovascular: Negative for chest pain and palpitations. Gastrointestinal: Positive for nausea and vomiting. Negative for abdominal distention, abdominal pain, anal bleeding, blood in stool, constipation and diarrhea. Genitourinary: Negative for dysuria, urgency, frequency, vaginal bleeding and vaginal discharge. Musculoskeletal: Negative for gait problem. Skin: Negative for rash. Neurological: Negative for syncope, light-headedness and headaches. Psychiatric/Behavioral: Negative for dysphoric mood, self-injury and suicidal ideas. Hematological: Negative for cold intolerance and heat intolerance. Does not bruise/bleed easily. Endocrine: Negative for cold intolerance and heat intolerance. BP (!) 136/91 (BP Location: Right arm, Patient Position: Sitting, BP CUFF SIZE: Adult Medium) | Pulse 94 | Temp 36.8 C (98.2 F) (Oral) | Resp 18 | Ht 5' 8" (1.727 m) | Wt 176 lb (79.8 kg) | LMP 12/08/2019 (Within Days) | BMI 26.76 kg/m Pregravid BMI: 27.38 Physical Exam Vitals reviewed. Constitutional: She is oriented to person, place, and time. She appears well- developed and well-nourished. Neck: No mass. No thyromegaly palpated. Cardiovascular: Regular rate and rhythm. Pulmonary/Chest: Breath sounds clear to auscultation. Normal inspiratory effort. Abdominal: Abdomen is soft. No tenderness present. No hernia palpated or inspected. Neuro/Psychiatric: She has a normal mood and affect. She is oriented to person, place, and time. Skin: Skin normal. No rash present. Lymphadenopathy: No axillary adenopathy present. No inguinal adenopathy present. Breast: Right breast exhibits no mass, no nipple discharge and no tenderness. Left breast exhibits no mass, no nipple discharge and no tenderness. Breasts are symmetrical. External genitalia: Normal external genitalia appropriate for age. Normal hair distribution. No labial lesion. Urethral meatus: Normal urethral meatus Urethra: Normal urethra. Bladder: Normal bladder Vagina:Vaginal discharge (appeared physiologic and no odor) found. Cervix: Normal cervix. No lesion. No tenderness and no discharge present. Uterus: Uterus is normal size and non-tender. 8-10 weeks size Adnexa: Right adnexa without tenderness or mass. Left adnexa without tenderness or mass. Anus/perineum: Normal perineum and normal anus. Assessment/Plan Return to clinic in 4 weeks. Discussed treatment options. Medications as ordered. Reviewed patient instructions and provided printed copy. Activity restrictions: As tolerated at 9w2d This visit did not involve counseling and coordination that comprised more than 50% of the visit time. Scribe's Attestation Usman Henderson , am scribing for, and in the presence of, Morena Bryant MD who performed the services described here-in. Usman Chaney, February 11, 2020, 2:06 PM Physician's Attestation I have seen and examined the patient and agreed with the note above Morena Bryant MD 02/11/2020 7:36 PM documented in this encounter Miscellaneous Notes OB Summary Note - Usman Chaney - 02/11/2020 2:00 PM CST Age: [age] year old GA: 9w2d Doing well, Patient declines flu shot s/p counseling Nausea/vomiting - Patient reports nausea taking zofran - Advised Unisom and vitamin B6 Hx of VAVD in 2011 - at [facility] - ROR signed Mitral valve prolapse - Diagnosed at 15 years old - Patient was seeing Dr. Adams. Last seen about 1 yr ago - denies symptoms - Sign ROR CHTN - Last time on medication was October patient was taking 100 mg BID of Labetalol - BP 130-140s/90s. Will not restart antihypertensives at this time. Will continue to monitor - Ordered eye exam - Ordered EKG - 24 hr urine collection ordered Hx of miscarriage -01/29/2020 USG at [facility] was told she was 7 1/7 weeks and subchorionic hemorrhage was noted. Sign ROR today -Miscarriage precaution given -Pelvic rest advised Smoker - smokes 3 cig/day currently - will housing counselor at next visit - Today USG: Single live IUP measured 9 1/7 weeks, consistent with LMP. Will date by LMP, unless clinically indicated otherwise New OB labs today. No complaints. Discussed do's and don'ts of , safe foods, safe medications. Reviewed Zika virus precautions. I discussed the call schedule and that I might not be the physician delivering her. Expectations for weight gain this include 15-25 pounds. Encouraged to call if have any additional questions or concerns. Discussed aneuploidy and carrier screening; patient declines. Discussed about COVID-19/flu precautions. Social distancing, frequent hand washings, wearing face mask, signs/symptoms for testing and to follow CDC recommendations discussed. Discussed with patient that we recommend covid testing to be done ~ one day prior to scheduled induction/ and she can have one HEALTHY support with her during her delivery if she does not haveCOVID. Also discussed that she and support person need to wear mask the entire inpatient stay. All questions were answered. RTC in 4 weeks for PN visit Scribe's Attestation I, sUman Chaney , am scribing for, and in the presence of, Morena Bryant MD who performed the services described here-in. Usman Chaney, February 11, 2020, 2:04 PM Physician's Attestation I have seen and examined the patient and agreed with the note above Morena Bryant MD 02/11/2020 7:30 PM documented in this encounter Plan of Treatment Name Type Priority Associated Diagnoses Order S chedule ADC OR [facility]BI ONLY - LAB Routine 9 weeks gestation o f Expected: RPR 02/11/2020, Expires: 05/13/2020 CBC WITH DIFF LAB Routine 9 weeks gestation of Expect ed: 02/11/2020, Expires: 05/13/2020 HCV ANTIBODY LAB Routine 9 weeks gestation of Expecte d: 02/11/2020, Expires: 05/13/2020 HEPATITIS B SURFACE LAB Routine 9 weeks gestation of Expected: ANTIGEN 02/11/2020, Expires: 05/13/2020 HIV 1/2 AG-AB WITH LAB Routine 9 weeks gestation of E xpected: REFLEX 02/11/2020, Expires: 02/10/2021 WORKUP, LAB Routine 9 weeks gestation of Exp ected: BLOOD BANK 02/11/2020, Expires: 05/13/2020 RUBELLA SCREEN IGG LAB Routine 9 weeks gestation of E xpected: 02/11/2020, Expires: 05/13/2020 URINE CULTURE LAB Routine 9 weeks gestation of Expect ed: 02/11/2020, Expires: 05/13/2020 VZV ANTIBODY SCREEN LAB Routine 9 weeks gestation of Expected: 02/11/2020, Expires: 05/13/2020 GLUCOSE 1 HOUR POST LAB Routine 9 weeks gestation of Expected: PRANDIAL 02/11/2020, Expires: 05/13/2020 COMP. METABOLIC PANEL LAB Routine Essential hypertens ion Ordered: ([id number]) 02/11/2020 CREATININE U 24 HR LAB Routine Essential hypertension Expected: 02/11/2020, Expires: 02/10/2021 PROTEIN QUANT U/24H LAB Routine Essential hypertensio n Expected: 02/11/2020, Expires: 02/10/2021 EKG-12 LEAD ROUTINE HEART STATION Routine Essential hypertensi on Ordered: 02/11/2020 Health Maintenance Due Date Last Done Comments VARICELLA VACCINES (1 of 2 - 2-dose childhood series) 02/19/1996 PNEUMOCOCCAL 0-64 YEARS COMBINED SERIES (1 of 1 - 2001 PPSV23) HPV VACCINES (1 - 2-dose series) 2006 Depression Screening 2007 DTaP,Tdap,and Td Vaccines (1 - Tdap) 2014 PAP SMEAR 02/19/2016 INFLUENZA VACCINE (#1) 2019 CHLAMYDIA SCREENING 02/10/2021 02/11/2020 documented as of this encounter Procedures Procedure Name Priority Date/Time Associated Diagnosis Comme nts <14 WEEKS US Routine 02/15/2020 9:34 9 weeks gestation of Res ults for this LIMITED PM FLOOR REFINISHER procedure are in High-risk the resu lts in first trimester section. ADC / [facility] - DRUG Routine 02/11/2020 3:53 9 weeks gestation of Results for this SCREEN TRIAGE PM FLOOR REFINISHER procedure are in the results section. GC & CHLAMYDIA Routine 02/11/2020 3:53 9 weeks gestation of R esults for this AMPLIFIED ASSAY PM FLOOR REFINISHER procedure ar e in the results section. POCT URINALYSIS W/O Routine 02/11/2020 Results for this SPECIFIC GRAVITY examination or test, pro cedure are in positive result the results section. POCT TEST Routine 02/11/2020 Missed menses Results for this procedure are i n the results section. documented in this encounter Results <14 WEEKS US LIMITED (02/15/2020 9:34 PM FLOOR REFINISHER) Specimen Narrative Performed At This result has an attachment that is no t available. - Limited USG for FHT: Single live IUP measured 9 1/7 weeks, consistent PACS with LMP. Will date by LMP unless clinically indicat ed otherwise Morena Bryant MD 02/15/2020 9:35 PM Performing Organization Address [facility] Phone Number PACS GC & CHLAMYDIA AMPLIFIED ASSAY (02/11/2020 3:53 PM FLOOR REFINISHER) Pathologist Sig nature C. trachomatis Nucleic Negative Negative [facility] Acid SERVICES N. gonorrhoeae Nucleic Negative Negative [facility] Acid SERVICES Specimen Urine - Urine, First Catch (First Void) Narrative Performed At Reliable results are dependent on adequate specimen [facility] collection. A positive result obtained from a patient after therap eutic treatment cannot be interpreted as indicating the pres ence of viable organisms. For patients on whom a false po sitive result may have adverse psychosocial impact, retesting is advised. Indeterminate: Unable to generate a valid test result on this specimen. Please submit a new specimen for repe at testing if clinically indicated. Chlamydia trachomatis/Neisseria gonorrhoeae nucleic ac id amplification testing (NAAT) has not been validated fo r medico-legal specimens (sexual abuse in shay-pubertal and pre-pubertal children, sexual assault, and legal cases ). Culture for Chlamydia trachomatis and/or Neisseria gonorrhoeae from clinically appropriate sites is the m ethod of choice in these cases. Results from this testing should be interpreted in conjunction with other laboratory and clinical data available to the clinician. For females in general, a urine specimen is a second-l ine option because it is considered less sensitive than a cervical swab for Chlamydia trachomatis and/or Neisser ia gonorrhoeae NAAT. Performing Organization Address City/State/[facility] Phone Number [facility] CLIA: [id number] [place] [address] [place] [address] ADC / LCC - DRUG SCREEN TRIAGE (02/11/2020 3:53 PM FLOOR REFINISHER) Pathologist Sig nature BENZO U Negative Negative [facility] DAVID U Negative Negative [facility] AMPHET Negative Negative [facility] THC Negative Negative [facility] METHADONE Negative Negative [facility] Meth U Negative Negative [facility] OPIATES Negative Negative [facility] Cocaine Metabolite Negative Negative [facility] PROPOXY Negative Negative [facility] Tric U Negative Negative [facility] PCP Negative Negative [facility] OXYCOD Negative Negative [facility] Specimen Urine - URINE, CLEAN CATCH Narrative Performed At Urine Drug Cutoff Ranges [facility] Benzodiazepines: 150 ng/mL Barbiturates: 200 ng/mL Amphetamine: 500 ng/mL Cannabinoids: 50 ng/mL Methadone: 200 ng/mL Methamphetamine: 500 ng/mL Opiates: 100 ng/mL or 2000 ng/mL Cocaine: 150 ng/mL Propoxyphene: 300 ng/mL Tricyclics: 300 ng/mL Oxycodone: 100 ng/mL PCP: 25 ng/mL The results are to be used only for medical (i.e., treatment) purposes. Unconfirmed screening results must not be used for non-medical purposes (e.g., employment testing, legal testing). Performing Organization Address City/State/Zipcode Phone Number [facility] CLIA: [id number] [place] [address] POCT TEST (02/11/2020) Pathologist Sig nature POCT PREG Positive On board controls acceptable Yes with C Line POCT PREG LOT # POCT PREG TEST DATE Specimen Urine - URINE, CLEAN CATCH POCT URINALYSIS W/O SPECIFIC GRAVITY (02/11/2020) Pathologist Sig nature POCT PH U N/A 5 - 8 mg/dl POCT U LEUK EST N/A Negative - Negative POCT U NIT N/A Negative - Negative POCT U PROT Trace Negative - Negative POCT U GLU Negative Negative - Negative POCT U KETONE N/A Negative - Negative POCT U BLD N/A Negative - Negative Specimen Urine - URINE, CLEAN CATCH documented in this encounter Visit Diagnoses Diagnosis High-risk in first trimester - Primary Missed menses Absence of menstruation examination or test, positive result Essential hypertension Unspecified essential hypertension 9 weeks gestation of state, incidental Nausea and vomiting during reese or to 22 weeks gestation History of vacuum extraction assisted de livery Smoker Tobacco use disorder documented in this encounter documented as of this encounter
--- OUTSIDE RECORDS SUMMARY | 2020-03-19 20:54 | XMS REPORT | Summary of Care ---
:[address] [facility] - Health Address [address] [place] [address] Care Team Providers Name Role Phone Chapo Barney MD Primary Care Provider Encounter Details Date Type Department Care Team Description 02/11/[address] [facility] Doctor Unassigned, No [address] [facility] [place] [address] [address] [id number] Allergies Active Allergy Reactions Severity Noted Date Comments Meperidine Hcl Rash 12/10/2015 documented as of this encounter (statuses as of 02/17/2020) Medications Medication Sig Dispensed Refills Start Date [...] as of this encounter (statuses as of 02/17/2020) Active Problems Problem Noted Date Smoker 02/15/2020 High-risk in first trimester 02/11/2020 History of vacuum extraction assisted delivery 020 Nausea and vomiting during prior to 22 weeks gestation 06/13/2015 Mitral valve prolapse 06/13/2015 Essential hypertension 06/13/2015 Estimated Date of Delivery Comments Yes 09/13/2020 Based on last menstr ual period of 12/08/2019 (Within Days) documented as of this encounter (statuses as of 02/17/2020) Social History Tobacco Use Types Packs/Day Years [...] with No / Unsure 02/11/2020 1:54 PM SUPERINTENDENT REFUSE DISPOSAL someone who 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 documented as of this encounter Last Filed Vital Signs Not on filedocumented in this encounter Plan of Treatment Health [...] Name Priority Date/Time Associated Diagnosis Comme nts AUTHORIZATION TO RELEASE Routine 02/11/2020 12:01 AM PHI TO [facility] SUPERINTENDENT REFUSE DISPOSAL documented in this encounter Results Not on filedocumented in this encounter Insurance Payer Benefit Plan / Group Subscriber ID Effective Dates Phone Address Type [employer] ALLIED BENEFIT [id number] 2016-Present PPO documented as of this encounter
--- OUTSIDE RECORDS SUMMARY | 2020-03-19 20:54 | XMS REPORT | Summary of Care ---
:1995 Author Organization [facility] - [facility] Address [address] [place] [id number] Care Team Providers Name Role Phone Chapo Barney MD Primary Care Provider Encounter Details Date Type Department Care Team Description 02/11/2020 Letter (Out) [facility] Women[facility] BryantMorena MD [address] [place] [address] [place] [address] [phone] Allergies Active Allergy Reactions Severity Noted Date Comments Meperidine Hcl Rash 12/10/2015 documented as of this encounter (statuses as of 02/11/2020) Medications Medication Sig Dispensed Refills Start Date End Date Status labetalol (NORMODYNE) Take 200 mg by 0 Active 100 mg tablet mouth every 12 (twelve) hours. ondansetron 4 mg tablet TAKE 1 TABLET BY 0 0 Active MOUTH EVERY 4 TO 6 HOURS NEEDED FOR NAUSEA vit Take by mouth. 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
--- OUTSIDE RECORDS SUMMARY | 2020-03-19 20:54 | XMS REPORT | Continuity of Care Document ---
:1995 Author Organization [facility] t Address [address] [place] [address] Care Team Providers Name Role Phone Doctor Unassigned, Name Attending Clinician Unavailable Melecio CAMARILLO Attending Clinician Manny MELO, Hector Attending Clinician Radiology Attending Clinician Unavailable Pob, Lab Main Attending Clinician Unavailable Problems This patient has no known problems. Allergies, Adverse Reactions, Alerts This patient has no known allergies or adverse reactions. Medications This patient has no known medications. Procedures This patient has no known procedures. Encounters Start End Encounter Admission Attending Care Care Encounter Source Date/Time Date/Time Type Type Clinicians Facility Department ID 2020-02-23 2020-02-23 Orders Doctor ZIMMERMAN [id number] 00:00:00 00:00:00 Only Unassigned, BRUNILDA [id number] [place]land [facility] [id number] 2020-02-15 2020-02-15 Case KANDY Majano [id number] 00:00:00 00:00:00 Management Zandra Bates [id number] [place] [id number] [place] [phone] [address] 2020-02-11 2020-02-11 Initial Morena Bryant [facility] [id number] 13:56:32 15:23:37 Hector Bates [id number] Visit Vince [id number] [place] [phone] [address] 2020-02-11 2020-02-11 Letter Morena Bryant [facility] [id number] 00:00:00 00:00:00 (Out) Cam Nicholson [id number] [place] [id number] Professio [phone] [facility] 2020-02-11 2020-02-11 Orders Doctor ERASMO [id number] 00:00:00 00:00:00 Only Unassigned, BRUNILDA [id number] [facility] [id number] 2019-09-04 2019-09-04 Hospital Radiology [facility] [id number] 08:58:00 23:59:00 Encounter Paulo [id number] [place] [id number] [place] [id number] 2019-09-04 2019-09-04 Pension Administrator Sunil Deluca [facility] [id number] 09:02:04 09:17:04 Visit Lab Main Paulo [id number] [place] [id number] Professio [phone] [address] Results This patient has no known results.
--- OUTSIDE RECORDS SUMMARY | 2020-03-19 20:55 | XMS REPORT | Summary of Care ---
:1995 Author Organization [facility] - Health Address [address] [place] [address] Care Team Providers Name Role Phone Chapo Barney MD Primary Care Provider Encounter Details Date Type Department Care Team Description 02/23/2020 Orders Only [facility] Doctor Unassigned, No [address] [facility] [place] [address] [address] [place] [phone] Allergies Active Allergy Reactions Severity Noted Date Comments Meperidine Hcl Rash 12/10/2015 documented as of this encounter (statuses as of 02/23/2020) Medications Medication Sig Dispensed Refills Start Date [...] as of this encounter (statuses as of 02/23/2020) Active Problems Problem Noted Date Smoker 02/15/2020 High-risk in first trimester 02/11/2020 History of vacuum extraction assisted delivery 020 Nausea and vomiting during prior to 22 weeks gestation 06/13/2015 Mitral valve prolapse 06/13/2015 Essential hypertension 06/13/2015 Estimated Date of Delivery Comments Yes 09/13/2020 Based on last menstr ual period of 12/08/2019 (Within Days) documented as of this encounter (statuses as of 02/23/2020) Social History Tobacco Use Types Packs/Day Years [...] with No / Unsure 02/11/2020 1:54 PM COTTON AGENT someone who was confirmed or suspected to [...] (#1) 2019 documented as of this encounter Procedures Procedure Name Priority Date/Time Associated Diagnosis Comme nts EXTERNAL PROVIDER Routine 02/23/2020 12:01 AM COTTON AGENT RECORDS documented in this encounter Results Not on filedocumented in this encounter Insurance Payer Benefit Plan / Group Subscriber ID Effective Dates Phone Address Type AETNA ALLIED BENEFIT [id number] 2016-Present PPO documented as of this encounter
[2020-03-19 22:04] LABS: Absolute Lymphocytes (CBC) 1.9 K/uL (0.7-4.9); Basophils % 0.3 % (0-1.3); Hematocrit 38.2 % (36.0-45.0); Lymphocytes % 15.8 % (15.3-44.8); MPV 8.1 fL (7.6-11.3); RBC Red Blood Cell Count 4.59 M/uL (3.86-4.86)
[2020-03-19 22:07] LABS: Urine Blood NEGATIVE (NEG); Urine Glucose NEGATIVE (NEG); Urine Protein NEGATIVE (NEG); Urine Specific Gravity 1.015 (1.005-1.030)
[2020-03-19] MEDS ORDERED: NA CHLORIDE 0.9% 1,000 ML ONE (22:08)
[2020-03-19] MEDS ORDERED: PROMETHAZINE INJ 25 MG/ML AMP ONE (22:08)
[2020-03-19 22:41] LABS: BUN Blood Urea Nitrogen 6 mg/dL (7-18); Bicarbonate 26 mmol/L (21-32); Glucose Level 84 mg/dL (74-106); HCG, Quantitative 21752 mIU/mL (1-3); Potassium 3.5 mmol/L (3.5-5.1); Sodium Level 139 mmol/L (136-145)
--- NOTE | 2020-03-19 22:45 | ER ---
Nurse's Notes [facility] Name: Radha Sue Age: 25 yrs Sex: Female : 1995 Arrival Date: 03/19/2020 Time: 21:22 Bed 17 Private MD: Diagnosis: Threatened Presentation: 03/19 21:33 Chief complaint: Patient states: 14 weeks , Vag bleeding since 2014, bright red ca1 with tiny clots. Reports subchorionic bleed on this . Denies pain. Coronavirus screen: Client denies travel out of the [place] in the last 14 days. At this time, the client does not indicate any symptoms associated with coronavirus-19. Ebola Screen: Patient negative for fever greater than or equal to 101.5 degrees Fahrenheit, and additional compatible Ebola Virus Disease symptoms Patient denies exposure to infectious person. Patient denies travel to an Ebola-affected area in the 21 days before illness onset. No symptoms or risks identified at this time. Initial Sepsis Screen: Does the patient meet any 2 criteria? No. Patient's initial sepsis screen is negative. Does the patient have a suspected source of infection? No. Patient's initial sepsis screen is negative. Risk Assessment: Do you want to hurt yourself or someone else? Patient reports no desire to harm self or others. Onset of symptoms was March 19, 2020 at 20:15. 21:33 Method Of Arrival: Ambulatory ca1 21:33 Acuity: TAVIA 3 ca1 Triage Assessment: 21:35 General: Appears in no apparent distress. comfortable, Behavior is calm, cooperative, ca1 appropriate for age. Pain: Denies pain. Neuro: Level of Consciousness is awake, alert, obeys commands, Oriented to person, place, time, situation. GI: Abdomen is round non-distended, Bowel sounds present X 4 quads. Abd is soft and non tender X 4 quads. : Reports vaginal bleeding that is bright red. Derm: Skin is intact, is healthy with good turgor, Skin is pink, warm \T\ dry. Musculoskeletal: Circulation, motion, and sensation intact. Capillary refill < 3 seconds. 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 - Social history:: Smoking status: Patient denies any tobacco usage or history of. Screenin:37 Abuse screen: Denies threats or abuse. Denies injuries from another. Nutritional ca1 screening: No deficits noted. Tuberculosis screening: No symptoms or risk factors identified. Fall Risk IV access (20 points). Assessment: 21:37 Reassessment: see triage notes. ca1 22:54 Reassessment: Patient denies pain at this time. Patient states feeling better. Patient mg2 states symptoms have improved. Vital Signs: 21:33 Weight 77.11 kg (R); Height 5 ft. 9 in. (175.26 cm) (R); Pain 0/10; ca1 21:40 BP 140 / 97; Pulse 92; Resp 16 S; Pulse Ox 98% on R/A; ca1 22:02 Temp 98.4; ca1 21:33 Body Mass Index 25.10 (77.11 kg, 175.26 cm) ca1 ED Course: 21:22 Patient arrived in ED. am2 21:29 Deon Gutierrez, DIRECTOR OF REGIONAL SALES is PHCP. pm1 21:29 Andrea Cotto MD is Attending Physician. pm1 21:33 Maranda Baldwin, REJI is Primary Nurse. ca1 21:35 Triage completed. ca1 21:35 Arm band placed on right wrist. ca1 21:37 Patient has correct armband on for positive identification. Bed in low position. Call ca1 light in reach. Side rails up X 1. Pulse ox on. NIBP on. Warm blanket given. 21:50 Inserted saline lock: 20 gauge in right antecubital area, using aseptic technique. dh4 Blood collected. 22:53 US Transvaginal Ob In Process Unspecified. EDMS 22:53 Ultrasound completed. Patient tolerated well. Notified DIRECTOR OF REGIONAL SALES/SHER harvey. sg3 22:55 No provider procedures requiring assistance completed. IV discontinued, intact, mg2 bleeding controlled, No redness/swelling at site. Pressure dressing applied. Administered Medications: 21:55 Drug: NS 0.9% 1000 ml Route: IV; Rate: 1000 ml; Site: right antecubital; ca1 22:49 Follow up: Response: No adverse reaction; IV Status: Completed infusion; IV Intake: mg2 1000ml 21:56 Drug: Phenergan 12.5 mg Route: IVP; Site: right antecubital; ca1 22:20 Follow up: Response: No adverse reaction mg2 Intake: 22:49 IV: 1000ml; Total: 1000ml. mg2 Outcome: 22:44 Discharge ordered by MD. pm1 22:55 Discharged to home ambulatory, with family. mg2 22:55 Condition: stable 22:55 Discharge instructions given to patient, family, Instructed on discharge instructions, follow up and referral plans. medication usage, Demonstrated understanding of instructions, follow-up care, medications, Prescriptions given X 1. 22:55 Patient left the ED. mg2 Signatures: Dispatcher [employer] EDMS Deon Gutierrez NP DIRECTOR OF REGIONAL SALES pm1 Julisa Resendiz am2 Aleyda Sanchez sg3 Kiet Markham RN RN mg2 Maranda Baldwin RN RN ca1 Polo Ferrer 4
--- NOTE | 2020-03-19 22:46 | EDPHYS ---
Physician Documentation [facility] Name: Radha Sue Age: 25 yrs Sex: Female : 1995 Arrival Date: 03/19/2020 Time: 21:22 Bed 17 Private MD: ED Physician Andrea Cotto HPI: 03/19 21:44 This 25 yrs old Female presents to ER via Ambulatory with complaints of pm1 Vaginal Bleeding - +14 wks preg, Nausea/Vomiting. 21:44 The patient presents with vaginal bleeding that is light, with clots, reports using 0 pm1 pads or tampons per day. Onset: The symptoms/episode began/occurred today. Modifying factors: The symptoms are alleviated by nothing, the symptoms are aggravated by sexual intercourse today. Bleeding started after sex. Associated signs and symptoms: Pertinent negatives: cramping, dysuria, fever, Abdominal pain. Severity of symptoms: in the emergency department the symptoms have improved, Patient noted no vaginal bleeding when providing urine sample in the ER. The patient is sexually active, does not use protection during intercourse. The patient has experienced similar episodes in the past, two prior miscarriages. The patient has not recently seen a physician, last seen by her ob at the beginning of February following ER visit here. Patient has had nausea and vomiting since she became . She does not take any medications for it because zofran made her vomit more. 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 - Social history:: Smoking status: Patient denies any tobacco usage or history of. ROS: 21:44 Positive for vaginal bleeding, Negative for flank pain, burning with urination. pm1 21:44 Constitutional: Negative for fever, chills, and weight loss, Cardiovascular: Negative for chest pain, palpitations, and edema, Respiratory: Negative for shortness of breath, cough, wheezing, and pleuritic chest pain. 21:44 Back: Negative for injury and pain, MS/Extremity: Negative for injury and deformity, Skin: Negative for injury, rash, and discoloration, Neuro: Negative for headache, weakness, numbness, tingling, and seizure. 21:44 Abdomen/GI: Positive for nausea and vomiting, Negative for abdominal pain, diarrhea, constipation. Exam: 21:44 Constitutional: This is a well developed, well nourished patient who is awake, alert, pm1 and in no acute distress. Head/Face: Normocephalic, atraumatic. 21:44 Back: No spinal tenderness. No costovertebral tenderness. Full range of motion. Skin: Warm, dry with normal turgor. Normal color with no rashes, no lesions, and no evidence of cellulitis. MS/ Extremity: Pulses equal, no cyanosis. Neurovascular intact. Full, normal range of motion. 21:44 Abdomen/GI: Inspection: gravid appearance, Palpation: abdomen is soft and non-tender, in all quadrants. 21:44 Neuro: Exam negative for acute changes, Orientation: is normal, Motor: is normal, moves all fours, Gait: is steady, at a normal pace, without difficulty. Vital Signs: 21:33 Weight 77.11 kg (R); Height 5 ft. 9 in. (175.26 cm) (R); Pain 0/10; ca1 21:40 BP 140 / 97; Pulse 92; Resp 16 S; Pulse Ox 98% on R/A; ca1 22:02 Temp 98.4; ca1 21:33 Body Mass Index 25.10 (77.11 kg, 175.26 cm) ca1 MDM: 21:31 Patient medically screened. pm1 22:44 Data reviewed: vital signs. Data interpreted: Pulse oximetry: on room air is 98 %. pm1 Interpretation: normal. Counseling: I had a detailed discussion with the patient and/or guardian regarding: the historical points, exam findings, and any diagnostic results supporting the discharge/admit diagnosis, lab results, radiology results, the need for outpatient follow up, for definitive care, an OB/Gyne specialist, to return to the emergency department if symptoms worsen or persist or if there are any questions or concerns that arise at home. 03/19 21:35 Order name: Quantitative Hcg; Complete Time: 22:42 pm1 03/19 21:35 Order name: Abo/rh Typing; Complete Time: 22:29 pm1 03/19 21:35 Order name: Basic Metabolic Panel; Complete Time: 22:42 pm1 03/19 21:35 Order name: CBC with Diff; Complete Time: 22:29 pm1 03/19 22:05 Order name: Urine --Ancillary (enter results); Complete Time: 22:29 tt3 03/19 22:05 Order name: Urine Dipstick--Ancillary (enter results); Complete Time: 22:29 tt3 03/19 21:35 Order name: Urine Test (obtain specimen); Complete Time: 22:04 pm1 03/19 21:35 Order name: IV Saline Lock; Complete Time: 21:56 pm1 03/19 21:35 Order name: Labs collected and sent; Complete Time: 21:56 pm1 03/19 21:35 Order name: NPO; Complete Time: 21:44 pm1 03/19 21:35 Order name: Urine Dipstick-Ancillary (obtain specimen); Complete Time: 22:04 pm1 03/19 21:38 Order name: US Transvaginal Ob pm1 Administered Medications: 21:55 Drug: NS 0.9% 1000 ml Route: IV; Rate: 1000 ml; Site: right antecubital; ca1 22:49 Follow up: Response: No adverse reaction; IV Status: Completed infusion; IV Intake: mg2 1000ml 21:56 Drug: Phenergan 12.5 mg Route: IVP; Site: right antecubital; ca1 22:20 Follow up: Response: No adverse reaction mg2 Disposition: 22:59 Co-signature as Attending Physician, Andrea Cotto MD I agree with the assessment and tw4 plan of care. Disposition: 03/19/20 22:44 Discharged to Home. Impression: Threatened . - Condition is Stable. - Discharge Instructions: Threatened Miscarriage, Pelvic Rest. - Prescriptions for promethazine 25 mg Oral Tablet - take 1 tablet by ORAL route every 6 hours As needed; 20 tablet. - Medication Reconciliation Form, Thank You Letter, Antibiotic Education, Prescription Opioid Use form. - Follow up: Emergency Department; When: As needed; Reason: Worsening of condition. Follow up: Private Physician; When: 2 - 3 days; Reason: Recheck today's complaints, Continuance of care, Re-evaluation by your physician. - Problem is new. - Symptoms have improved. Signatures: Dispatcher [employer] EDMS Deon Gutierrez, LOG YARD DERRICK OPERATOR LOG YARD DERRICK OPERATOR pm1 Andrea Cotto MD MD tw4 Kiet Markham, RN RN mg2 Maranda Baldwin RN RN ca1 Corrections: (The following items were deleted from the chart) 22:55 22:44 03/19/2020 22:44 Discharged to Home. Impression: Threatened . Condition mg2 is Stable. Forms are Medication Reconciliation Form, Thank You Letter, Antibiotic Education, Prescription Opioid Use. Follow up: Emergency Department; When: As needed; Reason: Worsening of condition. Follow up: Private Physician; When: 2 - 3 days; Reason: Recheck today's complaints, Continuance of care, Re-evaluation by your physician. Problem is new. Symptoms have improved. pm1
--- NOTE | 2020-03-20 10:12 | RAD REPORT ---
EXAM DESCRIPTION: US - Transvaginal OB - 03/19/2020 10:53 pm CLINICAL HISTORY: VAGINAL BLEEDING, COMPARISON: Transvaginal OB dated 01/29/2020 TECHNIQUE: Transabdominal pelvic sonography performed. FINDINGS: A single intrauterine gestation is identified. Heart rate measures 153-157 BPM. Anterior p lacenta is present with no abruption or marginal hematoma. No previa. No adnexal abnormalities identi fied. Cervical canal is long closed. Anatomic evaluation is grossly normal at this early age. Anatomic measurements were obtained yield 14 week 6 day age. Calculated SYEDA is 09/11/2020. There has been appropriate growth since the January 28 study. IMPRESSION: Single 14 week 6 day IUP showing appropriate growth since the January 28 study. Anterior placenta shows no abruption, marginal hematoma or other suspicious finding. There is no prev ia. Cervical canal is long and closed.
[2020-03-23 21:14] VITALS: BP 140/97; O2SAT 98
[2020-03-23 21:15] VITALS: TEMP 98.4
== END 2020-03-19 22:55 | disposition home or self-care (01) ==
LOC: ER 20:51
DX: O20.0 Threatened abortion (principal); Z3A.14 14 weeks gestation of pregnancy; Z88.5 Allergy status to narcotic agent
CPT/HCPCS: 96361; 85025; 80048; 36415; 86900; 81025; 86901; 84702; 81003; 76817; 96374; 99284; J2550; J7030

== ENCOUNTER 2022-10-04 16:59 | Emergency (ER) | payer OTHER ==
--- OUTSIDE RECORDS SUMMARY | 2022-10-04 17:02 | XMS REPORT | Continuity of Care Document ---
:1995 Author Organization [facility] t Address [address] [facility] [address] [place] [address] Care Team Providers Name Role Phone HOWARD HERMAN Primary Care Physician Unavailable Erasmo Chambers Attending Clinician Unavailable Doctor Unassigned, [place] Attending Clinician Unavailable Zandra Majano PA-C Attending Clinician Yamileth Medina MD Attending Clinician YAMILETH MEDINA Attending Clinician Unavailable MUNIR RECINOS Attending Clinician Unavailable RADIOLOGY Attending Clinician Unavailable Radiology Attending Clinician Unavailable Pob, [facility] Lab Main Attending Clinician Unavailable Silvestre Olivas MD Attending Clinician Clay Weaver Admitting Clinician Unavailable Erasmo Chambers Admitting Clinician Unavailable HOWARD HERMAN Admitting Clinician Unavailable Payers Payer Name Policy Type Policy Number Effective Date Expiration Date S ource Problems Condition Condition Condition Status Onset Resolution Last Treating Co mments Source Name Details Category Date Date Treatment Clinician Date Smoker Smoker Disease Active 2019-04 Univers 09 ity of 00:00: [place] 00 Medical Branch High-risk High-risk Disease Active 2019-04 Uni vers -05 ity of in first in first 00:00: [place] trimester trimester 00 Medi rebecca Branch History of History of Disease Active 2019-04 U nivers vacuum vacuum 1-05 [place] 00 Med[place] delivery delivery Branch Nausea and Nausea and Disease Active U emery vomiting vomiting 3-07 ity of during during 00:00: [place] 00 Medi rebecca prior to prior to Branch 22 weeks 22 weeks gestation gestation 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 00:00: [place] 00 Medical Branch Essential Essential Disease Active Uni vers hypertensi hypertensi 3 it y of on on 00:00: [place] 00 Medical Branch Hyperemesi Hyperemesi Disease Active U nivers s s 3 [place] of affecting affecting [place] , , [place] Me dical antepartum antepartum Br anch 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 06-12 ity of disorder disorder 00:00: [place] during during 00 Medical Bran ch in first in first trimester trimester Maternal Maternal Disease Active Unive rs chronic chronic 06-12 [place]y of hypertensi hypertens[place] 00 Medical first first Branch trimester trimester Allergies, Adverse Reactions, Alerts Allergy Allergy Status Severity Reaction(s) Onset Inactive Treating Comm ents Source Name Type Date Date Clinician Latex, DA Active [facility] Natural 09-06 [facility] [place] meperidi DA Active [facility] ne 09-06 [facility] 00:00: [facility] [place] Latex, DA Active MA RASH [facility] Natural 09-06 [facility] 00:00: [facility] [place] meperidi DA Active MA RASH [facility] ne 09-06 [facility] 00:00: [facility] [place] Latex, DA Active [facility] Natural 01-05 [facility] 00:00: [facility] [place] meperidi DA Active MA [facility] ne 01-05 Woman's 00:00: [facility] [place] Latex, DA Active MA RASH [facility] Natural 01-05 [facility] 00:00: [facility] [place] meperidi DA Active MA RASH [facility] ne 01-05 [facility] 00:00: [facility] [place] MEPERIDI DRUG Active Rash Univers NE HCL INGREDI 12-09 ity of 00:00: [place] 00 Medical Branch Meperidi Propensi Active Rash 2015-0 Univer s ne Hcl ty to 903 ity of adverse 00:00: [place] reaction Medical s Branch Social History Social Habit Start Date Stop Date Quantity Comments Source ASSERTION 2019-12-22 [facility] 00:00:00 [facility] History of Cigarette Smoker Universi ty of tobacco use [facility] Sex Assigned At Universit y of [facility] Exposure to Not sure University of SARS-CoV-2 [facility] (event) [place] Tobacco use and 2020-02-11 2020-02-11 Never used Universit y of exposure 00:00:00 00:00:00 [facility] Alcohol intake 2020-02-11 2020-02-11 Ex-drinker [facility] 00:00:00 00:00:00 (finding) [facility] Tobacco Comment 2020-02-11 2020-02-11 3 ciggs a day Univer sity of 00:00:00 00:00:00 [facility] Smoking Status Start Date Stop Date Source Current every day smoker 2020-02-11 00:00:00 Uni versity of [facility] Unknown if ever smoked Universit y of [facility] Medications Ordered Filled Start Stop Current Ordering Indication Dosage Frequency Signature Comments Components Source Medication Medication Date Date Medication? Clinician (SIG) Name Name labetalol 2019-04 Yes 200mg Take 200 Uni vers (NORMODYNE) 1-05 mg by ity of 100 mg 20:44: mouth [place] tablet 49 every 12 Medical (twelve) Branch hours. 2019-04 Yes Take by Venuetasticer s vit 1-05 mouth. ity of calc,iron,f 20:44: [place] ol 49 Medical ( Branch VITAMIN ORAL) labetalol 2019-04 Yes 200mg Take 200 Uni vers (NORMODYNE) 1-05 mg by ity of 100 mg 20:44: mouth [place] tablet 49 every 12 Medical (twelve) Branch hours. 2019-04 Yes Take by Venuetasticer s vit 1-05 mouth. ity of calc,iron,f 20:44: [place] olic 49 Medical ( Branch VITAMIN ORAL) labetalol 2019-04 Yes 200mg Take 200 Uni vers (NORMODYNE) 1-05 mg by ity of 100 mg 20:44: mouth [place] tablet 49 every 12 Medical (twelve) Branch hours. 2019-04 Yes Take by Univer s vit 1-05 mouth. ity of calc,iron,f 20:44: [place] [address] Medical ( Branch VITAMIN ORAL) labetalol 2019-04 Yes 200mg Take 200 Uni vers (NORMODYNE) 1-05 mg by ity of 100 mg 20:44: mouth [place] tablet 49 every 12 Medical (twelve) Branch hours. 2019-04 Yes [facility] 1-05 mouth. ity of calc,iron,f 20:44: [place] [address] Medical ( Branch VITAMIN ORAL) labetalol 2019-04 Yes 200mg Take 200 Uni vers (NORMODYNE) 1-05 mg by ity of 100 mg 20:44: mouth [place] tablet 49 every 12 Medical (twelve) Branch hours. 2019-04 Yes Take by [facility] vit 1-05 mouth. ity of calc,iron,f 20:44: [place] [address] Medical ( Branch VITAMIN ORAL) doxylamine- 2019-04 Yes [id number] 1{tbl} Take 1 Univers pyridoxine, 1-05 tablet by ity of vit B6, 00:00: mouth [place] (DICLEGIS) 00 SEE-INSTRU Med ical 10-10 mg CTIONS. Branch per tablet doxylamine- 2019-04 Yes [id number] 1{tbl} Take 1 Univers pyridoxine, 1-05 tablet by ity of vit B6, 00:00: mouth [place] (DICLEGIS) 00 SEE-INSTRU Med ical 10-10 mg CTIONS. Branch per tablet doxylamine- 2019-04 Yes [id number] 1{tbl} Take 1 Univers pyridoxine, 1-05 tablet by ity of vit B6, 00:00: mouth [place] (DICLEGIS) 00 SEE-INSTRU Med ical 10-10 mg CTIONS. Branch per tablet doxylamine- 2019-04 Yes [id number] 1{tbl} Take 1 Univers pyridoxine, 1-05 tablet by ity of vit B6, 00:00: mouth [place] (DICLEGIS) 00 SEE-INSTRU Med ical 10-10 mg CTIONS. Branch per tablet ondansetron 2019-04 Yes TAKE 1 Univ ers 4 mg tablet 1-03 TABLET BY ity of 00:00: MOUTH [place] 00 EVERY 4 TO Medical 6 HOURS Branch NEEDED FOR NAUSEA ondansetron 2019-04 Yes TAKE 1 Univ ers 4 mg tablet 1-03 TABLET BY ity of 00:00: MOUTH [place] 00 EVERY 4 TO Medical 6 HOURS Branch NEEDED FOR NAUSEA ondansetron 2019-04 Yes TAKE 1 Univ ers 4 mg tablet 1-03 TABLET BY ity of 00:00: MOUTH [place] 00 EVERY 4 TO Medical 6 HOURS Branch NEEDED FOR NAUSEA ondansetron 2019-04 Yes TAKE 1 Univ ers 4 mg tablet 1-03 TABLET BY ity of 00:00: MOUTH [place] 00 EVERY 4 TO Medical 6 HOURS Branch NEEDED FOR NAUSEA ondansetron 2019-04 Yes TAKE 1 Univ ers 4 mg tablet 1-03 TABLET BY ity of 00:00: MOUTH [place] 00 EVERY 4 TO Medical 6 HOURS Branch NEEDED FOR NAUSEA ibuprofen Yes 600mg Take 1 Unive rs 600 mg 9-13 tablet by ity of tablet 00:00: mouth [place] 00 every 6 Medical (six) Branch hours as needed for Pain (scale 4-6). ibuprofen Yes 600mg Take 1 Unive rs 600 mg 9-13 tablet by ity of tablet 00:00: mouth [place] 00 every 6 Medical (six) Branch hours as needed for Pain (scale 4-6). ibuprofen 2020- No 600mg Take 1 Univ ers 600 mg 9-13 11-05 tablet by ity of tablet 00:00: 00:00 mouth [place] 00 :00 every 6 Medical (six) Branch hours as needed for Pain (scale 4-6). sulfamethox Yes 1{tbl} Take 1 Un krystyna azole-trime 2-17 tablet by ity of thoprim 00:00: mouth 2 [place] 800-160 mg 00 (two) Medical per tablet times Branch daily. sulfamethox Yes 1{tbl} Take 1 Un krystyna azole-trime 2-17 tablet by ity of thoprim 00:00: mouth 2 [place] 800-160 mg 00 (two) Medical per tablet times Branch daily. sulfamethox 2016- 2020- No 1{tbl} Take 1 U nivers azole-trime 2-17 11-05 tablet by it y of thoprim 00:00: 00:00 mouth 2 [place] 800-160 mg 00 :00 (two) Medical per tablet times Branch daily. labetalol Yes 200mg Take 200 Uni vers (NORMODYNE) 9-03 mg by ity of 100 mg 18:19: mouth [place] tablet 38 every 12 Medical (twelve) Branch hours. labetalol 2016-0 Yes 200mg Take 200 Uni vers (NORMODYNE) 9-03 mg by ity of 100 mg 18:19: mouth [place] tablet 38 every 12 Medical (twelve) Branch hours. Vital Signs Vital Name Observation Time Observation Value Comments Source Systolic blood 2020-02-11 20:52:00 136 mm[Hg] Univer sity of pressure [facility] Diastolic blood 2020-02-11 20:52:00 91 mm[Hg] Unive rsity of pressure [facility] Heart rate 2020-02-11 20:32:00 94 /min Universi ty of [facility] Body temperature 2020-02-11 20:32:00 36.78 Beena Univ ersity of [facility] Respiratory rate 2020-02-11 20:32:00 18 /min Univ ersity of [facility] Body height 2020-02-11 20:32:00 172.7 cm Universi ty of [facility] Body weight 2020-02-11 20:32:00 79.833 kg Universi ty of [place] [facility] BMI 2020-02-11 20:32:00 26.76 kg/m2 Universi ty of [facility] Branch Systolic blood 2020-02-11 20:52:00 136 mm[Hg] Univer sity of pressure [facility] Branch Diastolic blood 2020-02-11 20:52:00 91 mm[Hg] Unive rsity of pressure [facility] Branch Heart rate 2020-02-11 20:32:00 94 /min Universi ty of [facility] Body temperature 2020-02-11 20:32:00 36.78 Beena Univ ersity of [facility] Branch Respiratory rate 2020-02-11 20:32:00 18 /min Univ ersity of [facility] Branch Body height 2020-02-11 20:32:00 172.7 cm Universi ty of [place] [facility] Body weight 2020-02-11 20:32:00 79.833 kg Universi ty of [place] [facility] BMI 2020-02-11 20:32:00 26.76 kg/m2 Universi ty of [facility] Procedures Procedure Date / Time Performing Clinician Source Performed [id number] 2020-09-07 00:00:00 [facility] [id number] 2020-09-07 00:00:00 JAVID [facility] [id number] 2020-09-07 00:00:00 JAVID [facility] EXTERNAL PROVIDER RECORDS 2020-02-23 06:01:00 Doctor Wright [facility] [place] [facility] [place] <14 WEEKS US 2020-02-16 03:34:33 Yamileth Medina [facility] LIMITED [facility] GC & CHLAMYDIA AMPLIFIED 2020-02-11 21:53:00 Yamileth Medina [facility] ASSAY [facility] ADC / LCC - DRUG SCREEN 2020-02-11 21:53:00 Yamileth Medina [facility] TRIAGE [facility] AUTHORIZATION TO RELEASE 2020-02-11 06:01:00 Doctor Wright [facility] PHI TO [facility] [place] [facility] POCT TEST 2020-02-11 00:00:00 Yamileth Medina [facility] POCT URINALYSIS W/O 2020-02-11 00:00:00 Yamileth Medina [facility] SPECIFIC GRAVITY [facility] COMP. METABOLIC PANEL 2019-09-04 14:41:00 Howard Herman [facility] ([id number]) [facility] CBC WITH DIFFERENTIAL 2019-09-04 14:41:00 Howard Herman [facility] US RETROPERITONEAL 2019-09-04 14:27:27 Requisition, Paper [facility] [place] Encounters Start End Encounter Admission Attending Care Care Encounter Source Date/Time Date/Time Type Type Clinicians Facility Department ID 2020-04-20 Inpatient ReyesErasmo haley [facility] RADI [id number] [facility] 11:00:00 09 [facility] [place] 2020-09-06 2020-09-08 Inpatient EL Erasmo Chambers [facility] OBPP [id number] [facility] 13:44:00 13:48:00 41 [facility] 2020-02-23 2020-02-23 Orders Doctor ZIMMERMAN [id number] Univers 00:00:00 00:00:00 Only Unassigned, BRUNILDA [id number] ity of [place] [facility] 4.2.7.2.686 Charanjit as [phone] [address] 2020-02-23 2020-02-23 Orders Doctor ERASMO [id number] 00:00:00 00:00:00 Only Unassigned, BRUNILDA [id number] [place] [facility] 4.2.7.2.[id number] [facility] 2020-02-15 2020-02-15 Case Melecio [facility] [id number] [facility] [place] [facility] 00:00:00 00:00:00 Management Zandra [place] [id number] [place] [id number] [address] 2020-02-15 2020-02-15 Satya Majano [facility] [id number] 00:00:00 00:00:00 Management Zandra [place] [id number] [place] 4.2.7.2.686 Professio [phone] [address] 2020-02-11 2020-02-11 Initial Yamileth Medina [facility] [id number] Univers 13:56:32 15:23:37 Cam [place] [id number] ity of Visit [place].2.[place] [phone] [address] 2020-02-11 2020-02-11 Initial Yamileth Medina [facility] [id number] 13:56:32 15:23:37 Cam [place] [id number] Visit [place] 4.2.7.2.686 Professio [id number] [address] 2020-02-11 2020-02-11 Outpatient R YAMILETH MEDINA [facility] [id number] Univers 14:00:00 14:00:00 ity of [facility] 2020-02-11 2020-02-11 Letter Yamileth Medina [facility] [id number] Univers 00:00:00 00:00:00 (Out) Cam [place] [id number] i [place]2.7.2.[place] [phone] Me dical [address] 2020-02-11 2020-02-11 Orders Doctor ERASMO [id number] [id number] Univers 00:00:00 00:00:00 Only Unassigned, BRUNILDA [id number] ity of [place] [facility] 4.2.7.2.686 Charanjit as [phone] [facility] [address] [place] 2020-02-11 2020-02-11 Letter MedinaYamileth [facility] [id number] 00:00:00 00:00:00 (Out) Cam Collins [id number] [place] 4.2.7.2.686 Professio [phone] [address] 2020-02-11 2020-02-11 Orders Doctor ERASMO 1.2.840.114 [id number] 00:00:00 00:00:00 Only Unassigned, BRUNILDA 350.1.13.10 [place] [facility] 4.2.7.2.686 [id number] [id number] 2020-02-10 2020-02-10 Outpatient R ADUM, [facility] [id number] Univers 10:30:00 10:30:00 MUNIR ity of [facility] 2019-09-04 2019-09-04 Outpatient R RADIOLOGY [facility] [id number] Univers 08:58:10 23:59:00 ity of [facility] 2019-09-04 2019-09-04 [facility] Radiology [facility] 1.2.840.114 [id number] Univers 08:58:00 23:59:00 Encounter [place] [id number] ity of [place] [phone] [facility] [address] [place] 2019-09-04 2019-09-04 [facility] Radiology [facility] [id number] 08:58:00 23:59:00 Encounter [place] [id number] [place] 4.2.7.2.[address] [phone] [id number] 2019-09-04 2019-09-04 Benefits Processor Sandrine, Sunil Lab Main [facility] [id number] [id number] Univers 09:02:04 09:17:04 Visit Olivas, Silvestre [place] 350.1.13.10 ity of [place] 4.2.7.2.686 Terry floyd [place] [phone] Il dical [address] 2019-09-04 2019-09-04 Benefits Processor Sunil Deluca [facility] 1.2.840.114 [id number] 09:02:04 09:17:04 Visit Lab Main Paulo 350.1.13.10 [place] 4.2.7.2.686 Professio [phone] [address] Results Test Description Test Time Test Comments Results Result Comments Source HGB HCT 2020-09-07 08:22:00 Test Item Value Reference Range Interpretation Comme nts HEMOGLOBIN (test code = HGB) 10.7 g/dL 10.1-13.8 N HEMATOCRIT (test code = HCT) 32.9 % 32.5-41.8 N AG HEPATITIS B [id number] 17:01:00 Test Item Value Reference Range Interpretation Comments AG HEPATITIS B SURFACE (test code NONREACTIVE NONREACTIVE = HBSAG) AB HEPATITIS C [id number] 17:01:00 Test Item Value Reference Range Interpretation Comments AB HEPATITIS C (test code = NONREACTIVE NONREACTIVE HCVAB) SIGNAL TO CUTOFF (test code = 0.05 <0.80 N CUTOFF) AB [id number] 17:01:00 Test Item Value Reference Range Interpretation Comments AB TREPONEMA (test code = TREPAB) NONREACTIVE NONREACTIVE AG HEPATITIS B [id number] 16:14:00 Test Item Value Reference Range Interpretation Comments AG HEPATITIS B SURFACE (test code NONREACTIVE NONREACTIVE = HBSAG) AB HEPATITIS C [id number] 16:14:00 Test Item Value Reference Range Interpretation Comments AB HEPATITIS C (test code = HCVAB) NONREACTIVE SIGNAL TO CUTOFF (test code = CUTOFF) <0.80 AB [id number] 16:14:00 Test Item Value Reference Range Interpretation Comments AB TREPONEMA (test code = TREPAB) NONREACTIVE NONREACTIVE CBC W/AUTO [id number] 15:21:00 Test Item Value Reference Range Interpretation Comments WHITE BLOOD CELL (test code = WBC) 16.0 K/mm3 6.5-12.3 H RED BLOOD CELL (test code = RBC) 4.24 M/mm3 3.51-4.69 N HEMOGLOBIN (test code = HGB) 11.8 g/dL 10.1-13.8 N HEMATOCRIT (test code = HCT) 35.1 % 32.5-41.8 N MEAN CELL VOLUME (test code = MCV) 82.8 fL 84.6-96.6 L MEAN CELL HGB (test code = MCH) 27.8 pg 27.3-33.9 N MEAN CELL HGB CONCETRATION (test 33.6 gm/dL 32.0-34.2 N code = MCHC) RED CELL DISTRIBUTION WIDTH (test 12.8 % 12.2-16.3 N code = RDW) PLATELET COUNT (test code = PLT) 370 K/mm3 134-363 H MEAN PLATELET VOLUME (test code = 10.7 fL 9.2-12.7 N MPV) NEUTROPHIL % (test code = NT%) 73.6 % 57.9-77.3 N LYMPHOCYTE % (test code = LY%) 18.3 % 14.5-29.7 N MONOCYTE % (test code = MO%) 6.6 % 3.6-10.2 N EOSINOPHIL % (test code = EO%) 0.7 % 0.0-3.0 N BASOPHIL % (test code = BA%) 0.2 % 0.1-0.9 N NEUTROPHIL # (test code = NT#) 11.8 K/mm3 LYMPHOCYTE # (test code = LY#) 2.9 K/mm3 MONOCYTE # (test code = MO#) 1.1 K/mm3 EOSINOPHIL # (test code = EO#) 0.12 K/mm3 BASOPHIL # (test code = BA#) 0.0 K/mm3 RBC MORPHOLOGY REQUIRED (test code NORMAL NORMAL = RBCM) PLATELET MORPHOLOGY REQUIRED (test NORMAL NORMAL code = PLTMR) COVID 19 Asymptomatic IH [id number] 13:54:00 Test Item Value Reference Range Interpretation Comments COVID 19 NEGATIVE NEGATIVE This test has b een Asymptomatic IH AG authorize d only for the (test code = detection ofpro teins from COVNONPUIAG) SARS-CoV-2, not for any other viruses orpathogens. Ne gative results should be treated as presumptive andconfirmed wi th a molecular assay , if necessary for patientmanageme nt. Negative result s do not rule out COVID- 19 andshould not b e used as the sole basis for treatment orpat ient management deci sions, including infec tion controldecision s. Negative result s should be considered i n thecontext of a patient's recent exposure s, history and thepresence of clinical signs and symptoms consis tent withCOVID-19. T his test has not been FD A cleared or approved; th e test hasbeen authori dottie by FDA under an Emerge ncy Use Authorization(E UA) for use by laborato remi certified under the CLIA thatmeet the re quirements to perform mode rate, high or waivedcomple xity tests. This misa t is authorized for use at thePoint of Car e (POC), i.e., in patien t care settingsoperati ng under a CLIA Certificat e of Waiver, Certifi magaly ofCompliance, o r Certificate of Accreditation. This test is only authori dottie for the duration of thedeclaration that circumstances e xist justifying theauthorizatio n of emergency use o f in vitro diagnostic test sfor detection and/o r diagnosis of CO VID-19 under Kmllrzq61 4(b)(1) of the Act, 21 U.S .C. 360bbb-3(b)(1), unless theauthorizatio n is terminated or r evoked sooner. - US PREG AFTER [id number] 12:17:00 [facility] : 1995 Sex: F Patient Name: GUS STAFFORD Unit No: [id number] EXAMS: CPT CODE: [id number] US PREG AFTER 1ST TRI [address] [facility] [address] [place], [place] [address] OBSTETRICAL ULTRASOUND REPORT Pat. Name: GUS STAFFORD Pat. No: [id number] Study Date: 04/20/2020 11:17am , Age: 11 1995, 25 Pregnancies: 5, Para 2 LMP: 12/08/2019 GA by LMP: 19w1d GA by US: 18w4d GA Selected: 19w1d (LMP) SYEDA: 1Referring MD: ERASMO CHAMBERS Registered Travel Nurse: Sandy Davies RDMS, RVT CPT4: [id number] Admitting MD: ERASMO CHAMBERS Hist/Ind: SCAN 1 ANATOMY MEASUREMENTS AGE GROWTH EVALUATION Measurement GA Range Srce %for GA Ratios ----- ---- ------- BPD 4.3 cm 18w6d (36e2t-42p3l) Hadl BPD 42% FL/BPD 0.65 HC 15.6 cm 18w3d (16w6d- 20w0d) Hadl HC 32% FL/AC 0.21 APD 4.2 cm APD HC/AC 1.20 (1.06 - 1.25) TAD 4.1 cm TAD CI 0.83 (0.70 - 0.86) AC 13.0 cm 18w2d (67v6l-14u6g) Hadl AC 31% FL 2.8 cm 18w2d (72t2m-05u0k) Hadl FL 31% HL 2.6 cm 18w2d (76v8h-24a9y) Cristian HL 36% GA for sonogram 18w4d (67d7c-76l7b) Weight Estimate: based on (BPD,HC,AC,FL) Hadlock Weight: 247 gm (211-283) Hadlock : 0lbs, 8oz Cervical Length: 4.3 cm Heart Rate: 144 bpm MATERNAL ANATOMY Ovaries LxHxW (cm) Right 2.9 x 1.5 x 1.6 Vol: 3.6cc Left 3.2 x 1.5 x 1.8 Vol: 4.5cc - Ovarian Cysts LxHxW (cm) L1: 1.2 x 1.0 x 1.3 CLINICAL SUMMARY Type of Gestation: SingletonIntrauterine in vertex presentation. size is appropriate for gestational age. motion and organs seen: heart motion seen somatic activity observed [facility] NAME: GUS STAFFORD Radiology Department PHYS: Erasmo Malik III, MD [address] : 1995 AGE: 25 SEX: [place], [place] [address] LOC: [facility] PHONE #: [phone] EXAM DATE: 04/20/2020 STATUS: REG CLI FAX #: [phone] RAD NO: Page 1 Signed Report (CONTINUED) Patient Name: GUS STAFFORD Unit No: [id number] EXAMS: CPT CODE: [id number] US PREG AFTER TRI 89359 (Continued) body and limb movements seen Four chamber heart observed Leftventricular outflow tract (LVOT) seen Right ventricular outflow tract (RVOT) seen Normal intracranial anatomy seen face and nasal bone seen Umbilical cord insertion in fetus seen stomach, Renal Fossa, Bladder and Spine seen Three vessel umbilical cord noted abnormalities observed: None seen at this exam Placental location: Anterior Placental maturity : Grade 1 There is no evidence of placenta previa. Amniotic fluid volume is normal. Uterus and adnexa: No significant abnormality is seen. Thank you for allowing us to participate in the care of this patient. Lane Nuñez M.D. Electronic Signature 04/20/2020 12:17pm at 1217 Reported and signed by: Lane Nuñez MD CC: Clay Weaver MD; Erasmo Chambers III, MD Technologist: Sandy Davies RDMS, RVT Probe: Trnscrbd D/ (1217) [email or web address] [facility] NAME: EM STAFFORDTE JENKINS Radiology Department PHYS: Erasmo Malik MD [address] : 1995 AGE: 25 SEX: [place], [place] [address] LOC: [facility] PHONE #: [phone] EXAM DATE: 04/20/2020 STATUS: REG CLI FAX #: [phone] RAD NO: Page 2 Signed Report Patient Name: GUS STAFFORD Unit No: [id number] EXAMS: CPT CODE: [id number] US PREGAFTER 1ST TRI 94393 (Continued) [facility] NAME: GUS STAFFORD Radiology Department PHYS: Erasmo Malik III, MD [address] : 1995 AGE: 25 SEX: [place], [place] [address] LOC: [facility] PHONE #: [phone] EXAM DATE: 04/20/2020 STATUS: REG [place] #: [phone] RAD NO: Page 3 Signed Report<14 WEEKS US [id number] 03:35:16- Limited USG for FHT: ?Single live IUP measured 9 1/7 weeks, consistent with LMP. ?Will date by LMP unless clinically indicated otherwise Yamileth Medina MD ?02/15/2020 ?9:35 PM [facility] CHLAMYDIA AMPLIFIED [id number] 18:58:00 Test Item Value Reference Range Interpretation Comments C. trachomatis Nucleic Negative Negative Acid (test code = 05616-9) N. gonorrhoeae Nucleic Negative Negative Acid (test code = 75804-5) JORDAN (test code = JORDAN) Reliable results are dependent on adequate specimen collection. ? A positive result obtained from a patient after therapeutic treatment cannot be interpreted as indicating the presence of viable organisms. ?For patients on whom a false positive result may have adverse psychosocial impact, retesting is advised. Indeterminate: Unable to generate a valid test result on this specimen. ?Please submit a new specimen for repeat testing if clinically indicated. Chlamydia trachomatis/Neisseria gonorrhoeae nucleic acid amplification testing (NAAT) has not been validated for medico-legal specimens (sexual abuse in shay-pubertal and pre-pubertal children, sexual assault, and legal cases). ?Culture for Chlamydia trachomatis and/or Neisseria gonorrhoeae from clinically appropriate sites is the method of choice in these cases. ? Results from this testing should be interpreted in conjunction with other laboratory and clinical data available to the clinician.For females in general, a urine specimen is a second-line option because it is considered less sensitive than a cervical swab for Chlamydia trachomatis and/or Neisseria gonorrhoeae NAAT. Lab Interpretation Normal (test code = 20155-5) [facility] - DRUG SCREEN [id number] 00:53:00 Test Item Value Reference Range Interpretation Comments BENZO U (test code = Negative Negative 8974785120) DAVID U (test code = Negative Negative 7774627941) AMPHET (test code = Negative Negative 7890530195) THC (test code = Negative Negative 3423619467) METHADONE (test code = Negative Negative 5417424932) Meth U (test code = Negative Negative 6988654447) OPIATES (test code = Negative Negative 3467013037) Cocaine Metabolite (test Negative Negative code = 1588587881) PROPOXY (test code = Negative Negative 4319818593) Tric U (test code = Negative Negative 4831035485) PCP (test code = Negative Negative 2416116420) OXYCOD (test code = Negative Negative 6188146312) JORDAN (test code = JORDAN) Urine Drug Cutoff Ranges Benzodiazepines: ? ? 150 ng/mLBarbiturates: ?200 ng/mLAmphetamine: ? 500 ng/mLCannabinoids: ?50 ?ng/mLMethadone: ? 200 ng/mLMethamphetamine: ? ? 500 ng/mL Opiates: ? 100 ng/mL or 2000 ng/mLCocaine: ? 150 ng/mLPropoxyphene: ?300 ng/mLTricyclics: ?300 ng/mLOxycodone: ? 100 ng/mLPCP: ? 25 ?ng/mL The results are to be used only for medical (i.e., treatment) purposes. Unconfirmed screening results must not be used for non-medical purposes (e.g., employment testing, legal testing). Lab Interpretation (test Normal code = 75517-0) [facility] URINALYSIS W/O SPECIFIC [id number] 20:39:00 Test Item Value Reference Range Interpretation Comments POCT PH U (test code = 3254) N/A 5-8 POCT U LEUK EST (test code = N/A Negative - Negative 3263) POCT U NIT (test code = 3262) N/A Negative - Negative POCT U PROT (test code = 3259) Trace Negative - Negative POCT U GLU (test code = 3256) Negative Negative - Negative POCT U KETONE (test code = 3258) N/A Negative - Negative POCT U BLD (test code = 3257) N/A Negative - Negative [facility] [id number] 20:39:00 Test Item Value Reference Range Interpretation Comments POCT PREG (test code = 1605) Positive On board controls acceptable with C Yes Line (test code = 3574) POCT PREG LOT # (test code = 3575) POCT PREG TEST DATE (test code = 3576) [facility]. METABOLIC PANEL (34706)2019-09-04 16:06:00 Test Item Value Reference Range Interpretation Comments NA (test code = 139 mmol/L 135-145 2109540998) K (test code = 4.2 mmol/L 3.5-5 3631398885) CL (test code = 104 mmol/L 98-108 1729585356) CO2 TOTAL (test code = 24 mmol/L 23-31 9120072892) AGAP (test code = 2-16 3090380700) BUN (test code = 7 mg/dL 7-23 1317004194) GLUCOSE (test code = 78 mg/dL 70-110 9332445073) CREATININE (test code 0.69 mg/dL 0.5-1.04 = 6466350250) TOTAL BILI (test code 0.4 mg/dL 0.1-1.1 = 0576397552) CALCIUM (test code = 9.3 mg/dL 8.6-10.6 1485565455) T PROTEIN (test code = 7.3 g/dL 6.3-8.2 5790574887) ALBUMIN (test code = 4.2 g/dL 3.5-5 5893252094) ALK PHOS (test code = 56 U/L 34-122 8391365722) ALTv (test code = 12 U/L 5-35 1742-6) AST(SGOT) (test code = 15 U/L 13-40 2736146601) eGFR Calculation mL/min/1.73m2 (Non-) (test code = 7446568333) eGFR Calculation mL/min/1.73m2 () (test code = 9429373984) JORDAN (test code = JORDAN) Association of Glomerular Filtration Rate (GFR) and Staging of Kidney Disease* + -+ + ---+| GFR (mL/min/1.73 m2) ?| With Kidney Damage ?| ?Without Kidney Damage+ -------+ ------+ ---------+| ?>90 ?| ?Stage one ?| ? Normal ?+ --+ -+ ----+| ?60-89 ?| ?Stage two ?| ? Decreased GFR ? + -+ + ---+| ?30-59 ?| ?Stage three ?| ? Stage three ? + -+ + ---+| ?15-29 ?| ?Stage four ? | ? Stage four ?+ --+ -+ ----+| ?<15 (or dialysis) ? ?| ?Stage five ? | ? Stage five ?+ --+ -+ ----+ *Each stage assumes the associated GFR level has been in effect for at least three months. ?Stages 1 to 5, with or without kidney disease, indicate chronic kidney disease. Notes: Determination of stages one and two (with eGFR >59mL/min/1.73 m2) requires estimation of kidney damage for at least three months as defined by structural or functional abnormalities of the kidney, manifested by either:Pathological abnormalities or Markers of kidney damage (including abnormalities in the composition of the blood or urine or abnormalities in imaging tests). [facility] RETROPERITONEAL [id number] 15:37:55 Mild right pelviectasis. Preliminary Report Dictated by Resident: Aguila Hi MD., have reviewed this study and agree with the abovereport.EXAM: US RETROPERITONEAL COMPLETE HISTORY: 24 years-old Female with Sever HTN, Elevated Creatine . TECHNIQUE: Ultrasound of kidneys and bladder was performed with grayscaleand selected color Doppler imaging. [employer] images were obtained forthe record. COMPARISON: CT AP without 05/25/2016 FINDINGS: KIDNEYS: RIGHT:Length: Normal, 10.8 x 5.1 x 5.5 cm. Parenchyma: Normal renal cortical echogenicity and thickness. No focalsolid or cysticrenal lesions are detected.Collecting System: Mild pelviectasis. LEFT:Length: Normal, 10.6 x 4.9 x 3.9 cm.Parenchyma:Normal renal cortical echogenicity and thickness. No focal solidor cystic renal lesions are detected.Collecting System: No hydronephrosis. BLADDER: Bladder is partially distended and grossly normal [facility], Radiant Results Inft User - 09/04/2019 10:39 AM CDTEXAM: US RETROPERITONEAL COMPLETEHISTORY: 24 years-old Female with Sever HTN, Elevated Creatine .TECHNIQUE: Ultrasound of kidneys and bladder was performed with grayscaleand selected color Doppler imaging. Government [employer] images were obtained forthe record.COMPARISON: CT AP without 05/25/2016FINDINGS: KIDNEYS:RIGHT:Length: Normal, 10.8 x 5.1 x 5.5 cm. Parenchyma: Normal renal cortical echogenicity and thickness. No focalsolid or cystic renal lesions are detected.Collecting System: Mild pelviectasis.LEFT:Length: Normal, 10.6 x 4.9 x 3.9 cm.Parenchyma:Normal renal cortical echogenicity and thickness. No focal solidor cystic renal lesions are detected.Collecting System: No hydronephrosis.BLADDER: Bladder is partially distended and grossly normalIMPRESSIONMild right pelviectasis.Preliminary Report Dictated by Resident: Aguila Hart MD., have reviewed this study and agree with the abovereport.[facility] WITH [id number] 15:32:00 Test Item Value Reference Range Interpretation Comments WBC (test code = See_Comment [Automated 2190-2) message] The sy stem which generated this result transmitted reference range : 4.30 - 11.10 10*3/?L. The reference range was not used to interpret this result as normal/abnormal . RBC (test code = See_Comment [Automated 009-8) message] The sy stem which generated this result transmitted reference range : 3.93 - 5.25 10*6/?L. The reference range was not used to interpret this result as normal/abnormal . HGB (test code = 13.2 g/dL 11.6-15 718-7) HCT (test code = 40.0 % 35.7-45.2 4544-3) MCV (test code = 86.4 fL 80.6-95.5 787-2) MCH (test code = 28.5 pg 25.9-32.8 785-6) MCHC (test code = 33.0 g/dL 31.6-35.1 786-4) RDW-SD (test code = 37.7 fL 39-49.9 L 39932-0) RDW-CV (test code = 11.9 % 12-15.5 L 788-0) PLT (test code = See_Comment [Automated 777-3) message] The sy stem which generated this result transmitted reference range : 166 - 358 10*3/ ?L. The reference r shonda was not used to interpret this result as normal/abnormal . MPV (test code = 10.1 fL 9.5-12.9 83364-2) NRBC/100 WBC (test See_Comment [Automat ed code = 0438490449) message] The system which generated this result transmitted reference range : 0.0 - 10.0 /100 WBCs. The refer ence range was not u sed to interpret th is result as normal/abnormal . NRBC x10^3 (test code <0.01 See_Comment [Auto mated = 1575083627) message] The s ystem which generated this result transmitted reference range : 10*3/?L. The reference range was not used to interpret this result as normal/abnormal . GRAN MAT (NEUT) % 65.3 % (test code = 770-8) IMM GRAN % (test code 0.30 % = 9256479867) LYMPH % (test code = 24.9 % 736-9) MONO % (test code = 7.4 % 5905-5) EOS % (test code = 1.6 % 713-8) BASO % (test code = 0.5 % 706-2) GRAN MAT x10^3(ANC) 4.77 10*3/uL 1.88-7.09 (test code = 1319929504) IMM GRAN x10^3 (test <0.03 0-0.06 code = 4935532609) LYMPH x10^3 (test code 1.82 10*3/uL 1.32-3.29 = 731-0) MONO x10^3 (test code 0.54 10*3/uL 0.33-0.92 = 742-7) EOS x10^3 (test code = 0.12 10*3/uL 0.03-0.39 711-2) BASO x10^3 (test code 0.04 10*3/uL 0.01-0.07 = 704-7) Lab Interpretation Abnormal (test code = 02194-8) [facility] Notes Date/Time Note Provider Source 2020-09-08 10:39:00-00:00 [facility] OB Postpart Progr Note REPORT#:[id number] REPORT STATUS: Signed DATE:09/08/20 TIME: 1039 PATIENT: GUS STAFFORD UNIT #: [id number] ROOM/BED: [address] : 95 AGE: 25 SEX: F ATTEND: Erasmo Chambers III, MD ADM AUTHOR: Erasmo Chambers III, MD * ALL edits or amendments must be made on the [employer]/computer document * Subjective Subjective Admission EGA: Weeks: 39 Days: 1 EGA at delivery (wks/days): 39 weeks Status/day: post Patient reports: Patient reports: Yes: normal lochia, pain management effective, tolerating po well, voiding well. No: complaints. Objective Nursing Documentation Review Nursing data: The data set between the solid lines has been im ported from nursing documentation. Any exceptions have been noted be low under Provider comments. Feeding preference: Post hemorrhage risk score: Low Risk for Hemorrhage. Provider comments on imported nursing data: [] Physical Exam Uterus: firm, involution appropriate Fundus: firm, below the umbilicus Lochia: normal Episiotomy or laceration: we ll approximated edges, no inflammation, no drainage noted Lower extremities: Edema: 1+ pitting Diagnosis, Assessment Plan Diagnosis, Assessment Plan Assessment: nml progress Plan: circumcision today, discharge today Plan discussed with: patient, spouse/partner, nu rse at 1040 RPT #:[id number] END OF REPORT 2020-09-07 08:03:00-00:00 [facility] OB Postpart Progr Note REPORT#:[id number] REPORT STATUS: Signed DATE:09/07/20 TIME: 08 PATIENT: GUS STAFFORD UNIT #: [id number] ROOM/BED: [address] : 95 AGE: 25 SEX: F ATTEND: Erasmo Chambers III, MD ADM AUTHOR: Erasmo Chambers III, MD * ALL edits or amendments must be made on the [employer]/computer document * Subjective Subjective Admission EGA: Weeks: 39 Days: 1 EGA at delivery (wks/days): 39 weeks Status/day: post Patient reports: Patient reports: Yes: normal lochia, pain management effective, tolerating po well, voiding well, voiding without pain, tolerating ambulatio n, flatus. No: complaints, bowel movement, nausea, vomiting, excess roscoe bleeding, abdominal pain, perineal pain, difficulty nursing, headache, blurred visi on. Objective Nursing Documentation Review Nursing data: The data set between the solid lines has been im ported from nursing documentation. Any exceptions have been noted be low under Provider comments. Feeding preference: Post hemorrhage risk score: Low Risk for Hemorrhage. Provider comments on imported nursing data: [] Physical Exam Uterus: firm, involution appropriate Fundus: firm, below the umbilicus Lochia: normal Episiotomy or laceration: we ll approximated edges, no inflammation, no drainage noted Lower extremities: Edema: 1+ pitting Diagnosis, Assessment Plan Diagnosis, Assessment Plan Assessment: nml progress Plan: circumcision today, discharge tomorrow Plan discussed with: patient, spouse/partner at 0805 RPT #:[id number] END OF REPORT 2020-09-06 21:53:00-00:00 [facility] OB Intrapart Prog Note REPORT#:[id number] REPORT STATUS: Signed DATE:09/06/20 TIME: 2152 PATIENT: GUS STAFFORD UNIT #: [id number] ROOM/BED: [address] : 95 AGE: 25 SEX: F ATTEND: Erasmo Chambers III, MD [facility] AUTHOR: Erasmo Chambers III, MD * ALL edits or amendments must be made on the [employer]/computer document * Subjective Subjective Admission EGA (wks/days): 39 weeks Patient reports: Patient reports: Yes contractions, Yes normal movement, Ye s comfortable with epidural, No complaints, No abdominal pain, No vaginal bleeding, No leaking fluid, No new complaints Objective Nursing Documentation Review Nursing data: The data set between the solid lines has been im ported from nursing documentation. Any exceptions have been noted be low under Provider comments. __ ROM date: ROM time: __ Provider comments on imported nursing data: [] Objective Cervical/ exam: Dilatation (cm): 8 Effacement (%): 80 station: + 1 presentation: cephalic Est. wt (lbs) 7 Est. wt (oz) 5 Uterine activity: Monitor: toco Frequency (description): regular Frequency (minutes): 33 Duration (seconds): 45 Intensity: moderate Resting tone: relaxed Current oxytocin: Indication: induction Infusion rate: 12.00 Procedures: none FHR Evaluation Baby A: Baby A baseline: 140 bpm Baby A variability: moderate 6-25 bpm Baby A accelerations: 10 X 10 Baby A decelerations: none Baby A FHR category: category 1 Diagnosis, Assessment Plan Assessment: normal FHR pattern, latent phase lab or, normal progress of labor Plan: anticipate vag delivery, continue current managmnt, continue labor induction, begin antibiotic therapy (epidural pr n) Consultation(s): Consultation performed: anesthesia at 2156 RPT #:[id number] END OF REPORT 2020-09-06 18:51:00-00:00 [facility] OB Intrapart Prog Note REPORT#:[id number] REPORT STATUS: Signed DATE:09/06/20 TIME: 1850 PATIENT: GUS STAFFORD UNIT #: [id number] ROOM/BED: [address] : 95 AGE: 25 SEX: F ATTEND: Erasmo Chambers III, MD ADM AUTHOR: Erasmo Chambers III, MD * ALL edits or amendments must be made on the [employer]/computer document * Subjective Subjective Admission EGA (wks/days): 39 weeks Patient reports: Patient reports: Yes complaints, Yes leaking fluid, Yes contract ions, Yes normal movement, Yes coping well w/ o pain meds, No abdominal pain, No vaginal bleeding, No decreased movement, No no movemen t, No headache, No blurred vision, No scotomata, No fever, No chills, No sh ortness of breath, No new complaints Objective Nursing Documentation Review Nursing data: The data set between the solid lines has been im ported from nursing documentation. Any exceptions have been noted be low under Provider comments. __ ROM date: ROM time: __ Provider comments on imported nursing data: [] Objective Cervical/ exam: Dilatation (cm): 4 (4-5 cm) Effacement (%): 70 station: - 1 presentation: cephalic Est. wt (lbs) 7 Est. wt (oz) 5 Pelvis exam: Clinically adequate for this fetus: yes Uterine activity: Monitor: toco Frequency (description): regular Frequency (minutes): 3 Duration (seconds): 45 Intensity: mild Resting tone: relaxed Current oxytocin: Indication: induction Infusion rate: 10.00 Procedures: none FHR Evaluation Baby A: Baby A baseline: 140 bpm Baby A variability: moderate 6-25 bpm Baby A accelerations: 10 X 10 Baby A decelerations: none Baby A FHR category: category 1 Diagnosis, Assessment Plan Assessment: normal FHR pattern, latent phase lab or, normal progress of labor Plan: anticipate vag delivery, continue current managmnt, continue labor induction, begin antibiotic therapy (epidural pr n) Consultation(s): Consultation performed: anesthesia Plan discussed with: patient, spouse/partner, nu rse at 1854 RPT #:[id number] END OF REPORT 2020-09-06 15:50:00-00:00 [facility] OB Intrapart Prog Note REPORT#:[id number] REPORT STATUS: Signed DATE:09/06/20 TIME: 1550 PATIENT: GUS STAFFORD UNIT #: [id number] ROOM/BED: [address] : 95 AGE: 25 SEX: F ATTEND: Erasmo Chambers III, MD ADM AUTHOR: Erasmo Chambers III, MD * ALL edits or amendments must be made on the el [employer]/computer document * Subjective Subjective Admission EGA (wks/days): 39 weeks Patient reports: Patient reports: Yes contractions, Yes normal movement, Ye s coping well w/o pain meds, No complaints, No abdominal pain, No vaginal ble eding, No leaking fluid, No decreased movement, No no movement, No headache, No blurred vision, No scotomata, No fever, No chills, No shortness of breath, No new complaints Objective Nursing Documentation Review Nursing data: The data set between the solid lines has been im ported from nursing documentation. Any exceptions have been noted be low under Provider comments. __ ROM date: ROM time: __ Provider comments on imported nursing data: [] Objective Cervical/ exam: Dilatation (cm): 2 Effacement (%): 70 station: - 3 presentation: cephalic Est. wt (lbs) 7 Est. wt (oz) 5 Pelvis exam: Clinically adequate for this fetus: yes Uterine activity: Monitor: toco Frequency (description): regular Frequency (minutes): 3 Duration (seconds): 45 Intensity: mild Resting tone: relaxed Current oxytocin: Indication: induction Infusion rate: 6.00 Procedures: artificial rupture memb FHR Evaluation Baby A: Baby A baseline: 140 bpm Baby A variability: moderate 6-25 bpm Baby A accelerations: 10 X 10 Baby A decelerations: none Baby A FHR category: category 1 Diagnosis, Assessment Plan Assessment: normal FHR pattern, latent phase lab or, normal progress of labor Plan: anticipate vag delivery, continue current managmnt, continue labor induction, begin antibiotic therapy (epidural pr n) Additional notes: GBS positive Hx of malignant hypothermia Consultation(s): Consultation performed: anesthesia Plan discussed with: patient, spouse/partner, cristian millerer, parent, nurse at 1555 RPT #:[id number] END OF REPORT 2020-09-06 14:31:00-00:00 [id number] [facility] [address] [place], [place] [address] PATIENT NAME: GUS STAFFORD ADMIT DATE: 09/06/20 ACCOUNT NO: [id number] ROOM NO: F.030 AGE: 25 SEX: F ADMITTING PHYSICIAN: Erasmo Chambers III, MD ATTENDING PHYSICIAN: Erasmo Chambers III, MD ADMISSION DATE: 09/06/2020 ADMITTING DIAGNOSES: A 39-week , histor y of hypertension, history of malignant hyperthermia, B negative, and group B Streptococcus positive. HISTORY OF PRESENT ILLNESS: The patient is a 25-year-old 5, para 2, EDC is 09/12/2020, presents at 39 weeks, prior pregn vikki is at 38 weeks where she had hypertension noted. Her blood pressure in the last several visits have been as high as 120/88. No current history of headach e, nausea, vomiting, or photophobia. The patient now presents for induction of labor because of history of hypertension. Her last also was a rapid delivery as she suggested that was almost at the roadside. Blood type is B positive, GBS positive, rubella immune, VDRL nonreactive. GC and chlamyd ia, HIV negative, hepatitis negative. One-hour glucose was 120. ALLERGIES: LATEX AND DEMEROL. PAST MEDICAL HISTORY: Previous medical problems of malignant hypothermia. She has also had surgery for a broken ankle. She als o has history of mitral valve prolapse with regurgitation and a history of hyp ertension. SOCIAL HISTORY: Past history of drug use; however, no current alcohol, tobacco, or recreational drug use during this . LABORATORY DATA: Ultrasound done at [place] oximately 18 weeks was consistent with size and dates. Weight gain during the has been approximately 30 pounds. PHYSICAL EXAMINATION: GENERAL: Well-developed, well-nourished [place] n female, in no apparent distress. VITAL SIGNS: Blood pressure 128/88, weight 192 p ounds. Remainder of physical exam within normal limits. ABDOMEN: Estimated weight is 7-1/2 pounds. PELVIS: Cervix was 1 to 2 cm, 50% effaced, -3 st ation, vertex. PLAN: Pitocin augmentation. Artificial rupture o f membranes and optional epidural. Close attention paid to hypertension a nd also prophylaxis for GBS. Dictated By: Erasmo Chambers III, MD WT: HP:FSARA/JAVID/PABLO PATIENT NAME: EM STAFFORDTE JENKINS ACCOUNT #: [id number] Conf#: [id number]/DID#: [id number] Authenticated by Erasmo Chambers MD On 09/06/2020 06:55:33 PM Electronically Signed by Erasmo Chambers III, MD o n 09/06/20 at 1855 PATIENT NAME: EM STAFFORDTE JENKINS ACCOUNT #: [id number]"
[2022-10-04 17:32] LABS: Absolute Lymphocytes (CBC) 2.4 K/uL (0.7-4.9); Hematocrit 44.4 % (36.0-45.0); Lymphocytes % 29.7 % (15.3-44.8); MCV 84.1 fL (80-100); RBC Red Blood Cell Count 5.28 M/uL (3.86-4.86)
[2022-10-04 17:47] LABS: Bilirubin Total 0.5 mg/dL (0.2-1.0); Potassium 3.3 mEq/L (3.5-5.1); Protein, Total 8.3 g/dL (6.4-8.2); Troponin High Sensitivity 9.6 pg/mL (<58.9)
--- NOTE | 2022-10-04 18:43 | RAD REPORT ---
EXAM DESCRIPTION: Ronni Single View10/04/2022 5:49 pm CLINICAL HISTORY: CHEST PAIN COMPARISON: No comparisons TECHNIQUE: Portable AP view of the chest. FINDINGS: The lungs are clear. No pneumothorax or effusion. The cardiomediastinal contours are unre markable. IMPRESSION: No acute cardiopulmonary process.
[2022-10-04 19:06] LABS: Specific Gravity 1.006 (1.005-1.030)
[2022-10-04 19:07] LABS: Specific Gravity 1.006 (1.005-1.030); Urine Bacteria None Seen /HPF (<20); Urine Bilirubin NEGATIVE (Negative); Urine Blood Negative (Negative); Urine Clarity Turbid (Clear); Urine Color Colorless (Yellow); Urine Glucose NEGATIVE (Negative); Urine Mucus Slight /HPF (None Seen); Urine Protein NEGATIVE (Negative); Urine RBC <5 /HPF (None Seen); Urine Urobilinogen Normal (Normal)
--- NOTE | 2022-10-04 19:12 | RAD REPORT ---
EXAM DESCRIPTION: CT - Head Brain Wo Cont - 10/04/2022 6:16 pm CLINICAL HISTORY: SLURRED SPEECH COMPARISON: No comparisons TECHNIQUE: Noncontrast head CT images were obtained without IV contrast. Multiplanar reformats were generated and reviewed. All CT scans are performed using dose optimization technique as appropriate and may include automated exposure control or mA/KV adjustment according to patient size. FINDINGS: No intracranial hemorrhage, mass, or edema. Midline structures are unremarkable. Normal ventricular caliber for age. Roman-white matter differentiation is preserved, without evidence of acute infarct. No abnormal extra- axial fluid collections. Mastoid air cells and visualized portions of the paranasal sinuses are clear. No acute bony findings. IMPRESSION: No evidence of an acute intracranial process.
[2022-10-04 19:16] LABS: Barbiturates NEGATIVE (NEGATIVE); Benzodiazepines NEGATIVE (NEGATIVE); Cocaine NEGATIVE (NEGATIVE); METHAMPHETAM NEGATIVE (NEGATIVE); Methadone NEGATIVE (NEGATIVE); Opiates NEGATIVE (NEGATIVE); Phencyclidine NEGATIVE (NEGATIVE); THC Cannibis NEGATIVE (NEGATIVE)
--- NOTE | 2022-10-04 19:29 | ER ---
Nurse's Notes [facility] Name: Radha Sue Age: 27 yrs Sex: Female : 1995 Arrival Date: 10/04/2022 Time: 16:59 Bed 15 Private MD: Diagnosis: Weakness Presentation: 10/04 17:00 Chief complaint: Spouse and/or significant other states: Got a phone call from patient nj1 about 30 mins ago, she said she was driving and "her right leg was shaking real bad", he states she was slurring her words. Pt does not have slurred speech at this time, responds slowly when asked questions. Teeth chattering upon arrival to triage, able to stop when oral temperature assessed. Pt states "it is so cold". 17:00 Onset of symptoms was October 04, 2022 at 16:30. nj1 17:00 Acuity: TAVIA 3 nj1 17:05 Coronavirus screen: At this time, the client does not indicate any symptoms associated bp with coronavirus-19. Ebola Screen: No symptoms or risks identified at this time. Initial Sepsis Screen: Does the patient meet any 2 criteria? No. Patient's initial sepsis screen is negative. Does the patient have a suspected source of infection? No. Patient's initial sepsis screen is negative. Risk Assessment: Do you want to hurt yourself or someone else? Patient reports no desire to harm self or others. 17:05 Method Of Arrival: Wheelchair bp Triage Assessment: 17:00 General: Appears distressed, Behavior is cooperative, appropriate for age, agitated, bp anxious. Pain: Complains of pain in head. EENT: No deficits noted. Neuro: No deficits noted. Cardiovascular: No deficits noted. Respiratory: No deficits noted. GI: No signs and/or symptoms were reported involving the gastrointestinal system. : No signs and/or symptoms were reported regarding the genitourinary system. Derm: No deficits noted. Musculoskeletal: No deficits noted. Historical: - Allergies: 17:04 Demerol; bp 17:14 Latex, Natural Rubber; nj1 - Home Meds: 17:14 Atenolol Oral [Active]; nj1 - PMHx: 17:04 Hypertension; mitral valve prolapse and regurgitation; bp - Immunization history:: Adult Immunizations up to date. - Social history:: Smoking status: Reported history of juuling and/or vaping. Screenin:46 [facility] ED Fall Risk Assessment (Adult) History of falling in the last 3 months, bp including since admission No falls in past 3 months (0 pts). Abuse screen: Denies threats or abuse. Denies injuries from another. Nutritional screening: No deficits noted. Tuberculosis screening: No symptoms or risk factors identified. Assessment: 17:00 General: SEE TRIAGE NOTE. bp 17:46 Reassessment: Patient appears in no apparent distress at this time. Patient is alert, bp oriented x 3, equal unlabored respirations, skin warm/dry/pink. 19:00 Reassessment: Patient appears in no apparent distress at this time. Patient is alert, bp oriented x 3, equal unlabored respirations, skin warm/dry/pink. Vital Signs: 17:00 BP 159 / 108; Pulse 90; Resp 18; Temp 98.5(O); Pulse Ox 100% on R/A; Weight 72.57 kg; nj1 Height 5 ft. 10 in. ; 17:46 BP 159 / 93; Pulse 77; Resp 16; Pulse Ox 100% ; bp 19:00 BP 144 / 108; Pulse 70; Resp 16; Pulse Ox 100% ; bp 17:00 Body Mass Index 22.96 (72.57 kg, 177.8 cm) nj1 ED Course: 17:00 Patient arrived in ED. am2 17:00 Linda Baer FNP-C is PHCP. kb 17:00 Santhosh Orona MD is Attending Physician. kb 17:04 Daniel Nunes, REJI is Primary Nurse. bp 17:14 Triage completed. nj1 17:15 Arm band placed on. nj1 17:15 Inserted saline lock: 20 gauge in right antecubital area, using aseptic technique. bp Blood collected. 17:23 EKG done, by ED staff. aw1 17:46 Patient has correct armband on for positive identification. Bed in low position. Call bp light in reach. Side rails up X2. 17:51 XRAY Chest (1 view) In Process Unspecified. EDMS 18:18 CT Head Brain wo Cont In Process Unspecified. EDMS 19:38 IV discontinued, intact, bleeding controlled, No redness/swelling at site. Pressure mb9 dressing applied. Administered Medications: 19:37 Drug: Acetaminophen PO 1000 mg Route: PO; mb9 19:38 Follow up: Response: No adverse reaction mb9 Medication: 17:46 VIS not applicable for this client. bp Outcome: 19:29 Discharge ordered by . kb 19:38 Discharged to home ambulatory. mb9 19:38 Condition: stable 19:38 Discharge instructions given to patient, Instructed on discharge instructions, follow up and referral plans. Demonstrated understanding of instructions, follow-up care. 19:39 Patient left the ED. mb9 Signatures: Dispatcher [employer] EDMS Linda Baer, CEMENT TRUCK LOADER-C CEMENT TRUCK LOADER-Julisa Pitts am2 Daniel Nunes, RN RN bp Maki Hudson RN RN mb9 Jody Gannon RN RN nj1 Latanya Moreira aw1 Corrections: (The following items were deleted from the chart) 17:15 17:04 Home Meds: Atenolol Oral; bp nj1
--- NOTE | 2022-10-04 19:29 | EDPHYS ---
Physician Documentation [facility] Name: Radha Sue Age: 27 yrs Sex: Female : 1995 Arrival Date: 10/04/2022 Time: 16:59 Bed 15 Private MD: ED Physician Santhosh Orona HPI: 10/04 17:32 This 27 yrs old Female presents to ER via Wheelchair with complaints of shaking. kb 17:32 The patient presents with generalized weakness, lightheadedness. Onset: The kb symptoms/episode began/occurred just prior to arrival. Context: occurred on a street or driveway, occurred while the patient was sitting, just prior to the episode the patient experienced no apparent symptoms. Modifying factors: The symptoms are alleviated by nothing, the symptoms are aggravated by nothing. Associated signs and symptoms: Pertinent positives: slurred speech. Severity of symptoms: At their worst the symptoms were moderate in the emergency department the symptoms have improved. Patient's baseline: Neuro: alert and fully oriented, Motor: no deficits, Ambulation: walks without assistance, Speech: normal. The patient has not experienced similar symptoms in the past. The patient has not recently seen a physician. reports pt was driving to the store and sent him a video of her leg shaking. States he talked to her on the phone and her speech was slurred. Pt reports she feels weak. Denies pain. . Historical: - Allergies: 17:04 Demerol; bp 17:14 Latex, Natural Rubber; nj1 - Home Meds: 17:14 Atenolol Oral [Active]; nj1 - PMHx: 17:04 Hypertension; mitral valve prolapse and regurgitation; bp - Immunization history:: Adult Immunizations up to date. - Social history:: Smoking status: Reported history of juuling and/or vaping. ROS: 17:31 Constitutional: Negative for fever, chills, and weight loss. kb 17:31 Neuro: Positive for speech changes, weakness, leg shaking. 17:31 All other systems are negative. Exam: 17:31 Constitutional: This is a well developed, well nourished patient who is awake, alert, kb and in no acute distress. Head/Face: Normocephalic, atraumatic. Eyes: Pupils equal round and reactive to light, extra-ocular motions intact. Lids and lashes normal. Conjunctiva and sclera are non-icteric and not injected. Cornea within normal limits. Periorbital areas with no swelling, redness, or edema. ENT: Moist Mucous membranes Cardiovascular: Regular rate and rhythm with a normal S1 and S2. No gallops, murmurs, or rubs. No pulse deficits. Respiratory: Respirations even and unlabored. No increased work of breathing. Talking in full sentences Abdomen/GI: Soft, non-tender. No distention Skin: Warm, dry with normal turgor. Normal color. MS/ Extremity: Pulses equal, no cyanosis. Neurovascular intact. Full, normal range of motion. Neuro: Awake and alert, GCS 15, oriented to person, place, time, and situation. Moves all extremities. Normal gait. 17:31 ECG was reviewed by the Attending Physician. Vital Signs: 17:00 BP 159 / 108; Pulse 90; Resp 18; Temp 98.5(O); Pulse Ox 100% on R/A; Weight 72.57 kg; nj1 Height 5 ft. 10 in. ; 17:46 BP 159 / 93; Pulse 77; Resp 16; Pulse Ox 100% ; bp 19:00 BP 144 / 108; Pulse 70; Resp 16; Pulse Ox 100% ; bp 17:00 Body Mass Index 22.96 (72.57 kg, 177.8 cm) nj1 MDM: 17:00 Patient medically screened. kb 17:31 Data reviewed: vital signs, nurses notes. kb 19:30 Differential diagnosis: cardiac arrhythmia, CVA, generalized weakness, kb hyperventilation, idiopathic dizziness, near-syncope, TIA. Historians other than the Patient: Spouse/Significant Other: . Counseling: I had a detailed discussion with the patient and/or guardian regarding: the historical points, exam findings, and any diagnostic results supporting the discharge/admit diagnosis, lab results, radiology results, the need for outpatient follow up, a family practitioner, to return to the emergency department if symptoms worsen or persist or if there are any questions or concerns that arise at home. 19:30 ED course: Pt states she is feeling better. Educated to follow up with Neurology and on kb all diagnostic results. Verbal understanding received. . 10/04 17: Order name: CBC with Diff; Complete Time: 17:40 kb 10/04 17:06 Order name: D-Dimer; Complete Time: 17:34 kb 10/04 17:06 Order name: Magnesium; Complete Time: 17:59 kb 10/04 17:06 Order name: NT PRO-BNP; Complete Time: 17:59 kb 10/04 17:06 Order name: Troponin HS; Complete Time: 18:00 kb 10/04 17:06 Order name: CMP; Complete Time: 17:59 kb 10/04 17:06 Order name: UDS; Complete Time: 19:25 kb 10/04 17:06 Order name: Test, Urine; Complete Time: 19:14 kb 10/04 17:06 Order name: Urinalysis w/ reflexes; Complete Time: 19:14 kb 10/04 17:06 Order name: XRAY Chest (1 view); Complete Time: 18:51 kb 10/04 17:06 Order name: CT Head Brain wo Cont; Complete Time: 19:14 kb 10/04 17:06 Order name: EKG; Complete Time: 17:07 kb 10/04 17:06 Order name: Cardiac monitoring; Complete Time: 17:15 kb 10/04 17:06 Order name: EKG - Nurse/Tech; Complete Time: 17:23 kb 10/04 17:06 Order name: IV Saline Lock; Complete Time: 17:15 kb 10/04 17:06 Order name: Labs collected and sent; Complete Time: 17:15 kb 10/04 17:06 Order name: O2 Per Protocol; Complete Time: 17:15 kb 10/04 17:06 Order name: O2 Sat Monitoring; Complete Time: 17:15 kb EC:31 Rate is 68 beats/min. Rhythm is regular. QRS [place] is Normal. [place] interval is normal at kb 156 msec. QRS interval is normal at 108 msec. QT interval is normal at 444 msec. Administered Medications: 19:37 Drug: Acetaminophen PO 1000 mg Route: PO; mb9 19:38 Follow up: Response: No adverse reaction mb9 Disposition Summary: 10/04/22 19:29 Discharge Ordered Location: Home kb Condition: Stable kb Diagnosis - Weakness kb Followup: kb - With: Emergency Department - When: As needed - Reason: Worsening of condition Followup: kb - With: Private Physician - When: 2 - 3 days - Reason: Recheck today's complaints, Continuance of care, Re-evaluation by your physician Discharge Instructions: - Discharge Summary Sheet kb - Tremor kb - Weakness, [id number] kb Forms: - Medication Reconciliation Form kb - Thank You Letter kb - Antibiotic Education kb - Prescription Opioid Use kb - [email or web address] kb Addendum: 10/06/2022 10:54 I reviewed the patient's care provided by the Advanced Practice Provider and agree with j r11 the diagnosis and treatment plan. Signatures: Dispatcher [employer] Linda Patrick, TRAUMA MANAGER-C TRAUMA MANAGER-Daniel Zamarripa, RN RN Santhosh Mejia MD MD [id number] Maki Hudson RN RN mb9 Jody Gannon RN RN nj1 Corrections: (The following items were deleted from the chart) 10/04 17:15 17:04 Home Meds: Atenolol Oral; bp agee1 19:29 19:29 Syncope Near kb kb
[2022-10-04] MEDS ORDERED: ACETAMINOPHEN 500 MG TAB ONE (19:42)
[2022-10-04 20:23] VITALS: TEMP 98.5; O2SAT 100
[2022-10-04 20:30] VITALS: BP 144/108
--- NOTE | 2022-10-05 08:48 | EKG ---
Test Date: 2022-10-04 Test Time: 17:21:31 Certified Professional Controller: SIMONE MEASUREMENT RESULTS: Intervals: Rate: 68 WV: 156 QRSD: 108 QT: 418 QTc: 444 [place]: P: 18 WV: 156 QRS: 59 T: 63 INTERPRETIVE STATEMENTS: Normal sinus rhythm Normal ECG No previous ECG available for comparison Electronically Signed On 10-05-22 08:47:36 CDT by Brayden Simon
== END 2022-10-04 19:39 | disposition home or self-care (01) ==
LOC: ER 16:59
DX: R53.1 Weakness (principal); I10 Essential (primary) hypertension; I34.1 Nonrheumatic mitral (valve) prolapse; Z88.5 Allergy status to narcotic agent; Z91.040 Latex allergy status; Z91.048 Other nonmedicinal substance allergy status
CPT/HCPCS: 36415; 70450; 71045; 80053; 80307; 81001; 81025; 83735; 83880; 84484; 85025; 85379; 93005; 99284